=== PATIENT | female | born 1960 | race Caucasian/White ===

== ENCOUNTER → 2019-12-16 16:05 | Outpatient (BNVA) | payer MEDICARE, SELFPAY | PROVIDERS: Family Provider Family Medicine; PCP Family Medicine; Visit Provider Obstetrics & Gynecology | DX: R32 Unspecified urinary incontinence (principal); R33.9 Retention of urine, unspecified | CPT/HCPCS: 87086 ==

== ENCOUNTER 2020-06-18 09:39 | Outpatient (CLI) | payer MEDICARE, SELFPAY ==
--- NOTE | 2020-06-18 09:46 | MM_ITS ---
WS: [id number] BILATERAL SCREENING DIGITAL MAMMOGRAM WITH CAD HISTORY: SCREENING COMPARISON: 05/17/2019 and 08/11/2016 Bilateral CC and MLO views submitted. Computer aided detection analyzed. Breast composition: There are scattered areas of fibroglandular density. No suspicious masses, microc alcifications or architectural distortion. Benign calcifications LEFT breast. MM/[id number] IMPRESSION: BI-RADS: 2-Benign FOLLOW UP: 1 Year Follow-up
== END 2020-06-18 09:40 | disposition home or self-care (01) ==
LOC: RADSHAW 09:43
PROVIDERS: PCP Family Medicine; Visit Provider Family Medicine
DX: Z12.31 Encounter for screening mammogram for malignant neoplasm of breast (principal)
CPT/HCPCS: 77067

== ENCOUNTER → 2020-08-05 10:47 | Outpatient (BNVA) | payer MEDICARE, SELFPAY | PROVIDERS: PCP Family Medicine; Visit Provider Nurse Practitioner Family | DX: Z01.419 Encounter for gynecological examination (general) (routine) without abnormal findings (principal); L40.9 Psoriasis, unspecified | CPT/HCPCS: 88175 ==

== ENCOUNTER 2021-07-23 08:09 | Outpatient (CLI) | payer MEDICARE, SELFPAY ==
--- NOTE | 2021-07-23 08:22 | MM_ITS ---
WS: [id number] BILATERAL SCREENING DIGITAL MAMMOGRAM WITH CAD HISTORY: SCREENING COMPARISON: 06/18/2020 and 05/17/2019 Bilateral CC and MLO views submitted. Computer aided detection analyzed. Breast composition: There are scattered areas of fibroglandular density. No suspicious masses, microc alcifications or architectural distortion. Benign round calcifications LEFT breast. MM/[id number] IMPRESSION: BI-RADS: 2-Benign FOLLOW UP: 1 Year Follow-up
== END 2021-07-23 08:10 | disposition home or self-care (01) ==
LOC: RADSHAW 08:14
PROVIDERS: PCP Family Medicine; Visit Provider Family Medicine
DX: Z12.31 Encounter for screening mammogram for malignant neoplasm of breast (principal)
CPT/HCPCS: 77067

== ENCOUNTER → 2021-08-12 10:52 | Outpatient (BNVA) | payer MEDICARE, SELFPAY | PROVIDERS: PCP Family Medicine; Visit Provider Nurse Practitioner Family | DX: Z01.419 Encounter for gynecological examination (general) (routine) without abnormal findings (principal) | CPT/HCPCS: 87624 ==

== ENCOUNTER 2022-08-12 09:43 | Outpatient (CLI) | payer MEDICARE, SELFPAY ==
--- NOTE | 2022-08-12 10:03 | MM_ITS ---
WS: [id number] BILATERAL SCREENING DIGITAL TOMOSYNTHESIS MAMMOGRAM WITH CAD HISTORY: SCREEN COMPARISON: 07/23/2021 and 06/18/2020 Bilateral CC and MLO views with tomosynthesis and synthetic mammography submitted. Computer aided det ection analyzed. Breast composition: There are scattered areas of fibroglandular density. No suspicious masses, microc alcifications or architectural distortion. Benign coarse calcification upper-outer quadrant LEFT sofia st[address] MM/[id number] IMPRESSION: BI-RADS: 2-Benign FOLLOW UP: 1 Year Follow-up
== END 2022-08-12 09:44 | disposition home or self-care (01) ==
PROVIDERS: PCP Nurse Practitioner Family; Visit Provider Family Medicine
DX: Z12.31 Encounter for screening mammogram for malignant neoplasm of breast (principal)
CPT/HCPCS: 77063; 77067

== ENCOUNTER 2023-08-14 10:51 | Outpatient (CLI) | payer MEDICARE, SELFPAY ==
--- NOTE | 2023-08-14 11:00 | MM_ITS ---
WS: [id number] BILATERAL SCREENING DIGITAL TOMOSYNTHESIS MAMMOGRAM WITH CAD HISTORY: SCREENING COMPARISON: 08/12/2022 and 07/23/2021 Bilateral CC and MLO views with tomosynthesis and synthetic mammography submitted. Computer aided det ection analyzed. Breast composition: There are scattered areas of fibroglandular density. No suspicious masses, microc alcifications or architectural distortion. Benign calcifications in each breast. IMPRESSION: MM/[id number] BI-RADS: 2-Benign FOLLOW UP: 1 Year Follow-up
== END 2023-08-14 10:52 | disposition home or self-care (01) ==
PROVIDERS: PCP Family Medicine; Visit Provider Nurse Practitioner Family
DX: Z12.31 Encounter for screening mammogram for malignant neoplasm of breast (principal)
CPT/HCPCS: 77063; 77067

== ENCOUNTER → 2023-09-05 12:17 | Outpatient (BNVA) | payer MEDICARE, SELFPAY | PROVIDERS: PCP Nurse Practitioner Family; Visit Provider Nurse Practitioner Family | DX: Z01.419 Encounter for gynecological examination (general) (routine) without abnormal findings (principal) | CPT/HCPCS: 87624 ==

== ENCOUNTER 2024-08-16 09:00 | Outpatient (CLI) | payer MEDICARE, SELFPAY ==
--- NOTE | 2024-08-16 09:08 | MM_ITS ---
WS: [id number] BILATERAL SCREENING DIGITAL TOMOSYNTHESIS MAMMOGRAM WITH CAD HISTORY: SCREEN COMPARISON: 08/14/2023, 08/12/2022 Bilateral CC and MLO views with tomosynthesis and synthetic mammography submitted. Computer aided det ection analyzed. Breast composition: There are scattered areas of fibroglandular density. No suspicious masses, microc alcifications or architectural distortion. Scattered benign calcifications in each breast. MM/MM scr [place] tomosynthesis [id number] IMPRESSION: BI-RADS: 2 - Benign. FOLLOW UP: 1 Year Follow-up
== END 2024-08-16 09:05 | disposition home or self-care (01) ==
PROVIDERS: PCP Family Medicine; Visit Provider Nurse Practitioner Family
DX: Z12.31 Encounter for screening mammogram for malignant neoplasm of breast (principal); R92.323 Mammographic fibroglandular density, bilateral breasts; R92.1 Mammographic calcification found on diagnostic imaging of breast
CPT/HCPCS: 77063; 77067

== ENCOUNTER → 2024-09-19 10:28 | Outpatient (BNVA) | payer MEDICARE, SELFPAY | PROVIDERS: PCP Family Medicine; Visit Provider Family Medicine | DX: E11.319 Type 2 diabetes mellitus with unspecified diabetic retinopathy without macular edema (principal); I10 Essential (primary) hypertension; E78.2 Mixed hyperlipidemia; K21.9 Gastro-esophageal reflux disease without esophagitis | CPT/HCPCS: 80053; 80061; 82043; 83036; 84443; 85025 ==

== ENCOUNTER 2024-09-23 13:23 | Emergency (ER) | payer MEDICARE, SELFPAY ==
[2024-09-23 13:29] VITALS: BP 152/78; PULSE 85; RESP 20; TEMP 36.9; O2SAT 96
--- NOTE | 2024-09-23 13:42 | ED.C_ITS ---
HPI - Psych 2 General: Chief Complaint: Psychiatric Symptoms Stated Complaint: L knee pain and mhe Time Seen by Provider: 09/23/24 13:27 Source: patient Mode of arrival: ambulatory History of Present Illness: Patient was transported to the emergency department by buddhist friends. They are concerned because she is seemingly having some visual hallucinations over the past few days. Patient apparently lives with her adult son and his daughter. She has turns about her left knee states that needs to be taken care of today. She also states her blood pressure fluctuates. She currently denies any thoughts of harming herself. She also denies hallucinations at this time. She denies alcohol use. She denies any street drug use. She states she has been faithful to the prescribed medications. She states that Dr. Watson whom she saw her recently and to establish care has been prescribing her medications. Also recommended taking Benadryl for her pain. She states she has been taking Benadryl. Her past history is notable for a prior hysterectomy and cholecystectomy. She is also had a arthroplasty of her right knee several years ago. She did states that most of her care previously was obtained in [place] and doctors there but have moved on from those doctors to [facility] doctors at this time. She states she has a pending evaluation at [facility] but has not been seen at that facility at this time. She denies any prior history of suicidality. States that some nights she sleeps well other nights she does not sleep well. Patient is been eating and drinking normally. Associated symptoms: Reports visual hallucinations; Deny homicidal ideation or suicidal ideation Related Data Home Medications Medication Instructions Recorded Confirmed losartan 50 mg tablet 50 mg PO DAILY 12/16/19 09/23/24 atorvastatin 10 mg tablet (Lipitor) 10 mg PO DAILY 08/09/22 09/23/24 meloxicam 15 mg tablet 15 mg PO DAILY 08/09/22 09/23/24 famotidine 40 mg tablet (Pepcid) 40 mg PO DAILY 07/23/24 09/23/24 acetaminophen 325 mg tablet 325 mg PO QID PRN Pain 09/23/24 09/23/24 (Tylenol) Previous Rx's Medication Instructions Recorded ondansetron HCl 4 mg tablet 4 mg PO QID PRN nausea and 09/21/22 vomiting #30 tabs clonazepam 1 mg tablet (Klonopin) 1 mg PO BID PRN anxiety #60 tabs 07/23/24 estradiol 1 mg tablet 1 mg PO DAILY #90 tabs 07/23/24 metformin 500 mg tablet 500 mg PO DAILY #90 tabs 07/23/24 trazodone 100 mg tablet 200 mg (2 x 100 mg) PO .qhs #180 07/23/24 tabs trospium 20 mg tablet 20 mg PO BID #180 tabs 07/23/24 doxycycline hyclate 100 mg capsule 100 mg PO BID 10 days #20 caps 09/19/24 omeprazole 40 mg capsule,delayed 40 mg PO BID #180 caps 09/19/24 release risperidone 2 mg tablet 2 mg PO .qpm #90 tabs 09/19/24 Allergies Allergy/AdvReac Type Severity Reaction Status Date / Time ciprofloxacin [From Cipro] Allergy Severe ALGY-Anaphy Verified 09/19/24 09:34 laxis divalproex sodium Allergy Unknown Unknown Verified 09/19/24 09:34 [From Depakote] donepezil [From Aricept] Allergy ADR-Nausea Verified 09/19/24 09:34 fluoxetine [From Prozac] Allergy Unknown Verified 09/19/24 09:34 fluticasone Allergy ADR-Gastrointestinal Verified 09/19/24 09:34 [From Advair Diskus] Upset lamotrigine [From Lamictal] Allergy ADR-Nausea Verified 09/19/24 09:34 phentermine Allergy Unknown Verified 09/19/24 09:34 quetiapine [From Seroquel] Allergy ADR-Gastrointestinal Verified 09/19/24 09:34 Upset salmeterol Allergy ADR-Gastrointestinal Verified 09/19/24 09:34 [From Advair Diskus] Upset tamsulosin Allergy ALGY-Rash Verified 09/19/24 09:34 thiethylperazine Allergy ADR-Shakine Verified 09/19/24 09:34 [From Torecan] ss varenicline [From Chantix] Allergy ADR-Gastrointestinal Verified 09/19/24 09:34 Upset zonisamide [From Zonegran] Allergy ADV-Weaknes Verified 09/19/24 09:34 s Review of Systems 2 Const: Denies: fever(s) or chills ENMT: Denies: throat pain, odynophagia, nasal discharge or nasal congestion Card: Denies: chest pain, palpitations, syncope or pre-syncope Resp: Denies: productive cough or non-productive cough GI: Denies: abdominal pain, nausea, vomiting or diarrhea : Reports: urinary frequency; Denies: flank pain or urinary incontinence Skin/Breast: Denies: rash or pruritus Neuro: Denies: headache(s), numbness in extremities or weakness in extremities Psych: Reports: anxiety, difficulty concentrating and visual hallucinations; Denies: suicidal ideation or homicidal ideation Endo: Reports: polyuria; Denies: polydipsia, tired all the time or cold intolerance PFSH ED 2 PFSH: Medical History Hx of colonic polyps she says she is due for colonoscopy--last one [place] 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, due to meth Chronic back pain greater than 3 months duration Hormone replacement therapy (HRT) Nicotine dependence, cigarettes, in remission Hyperlipidemia GERD without esophagitis Anxiety Hx of hepatitis C cured; reports she has had hep a an b vax Overactive bladder Diabetic retinopathy associated with controlled type 2 diabetes mellitus Eczema Controlled type 2 diabetes mellitus, without long-term current use of insulin Glaucoma (~2017) History of CVA (cerebrovascular accident) in her 40s; no residual deficits Bipolar 1 disorder Hypertension Surgical History History of glaucoma tube shunt procedure Hx of cataract removal with insertion of prosthetic lens OU History of reconstructive repair of rectocele and pelvic floor reconstruction History of back surgery age 59; lumbar fusion History of foot surgery Removal of tumor from right foot. In her 30s. Hx of cholecystectomy Laparoscopic. In her 30s. Hx of appendectomy (~1987) Age 28. Hx of sinus surgery Sinus surgery with septoplasty. In her 30s Hx of tubal ligation (~1985) Age 26. History of tonsillectomy and adenoidectomy (~1978) Age 19 Hx of hysterectomy (~1990) ANABELLE/BSO due to endometriosis. Age 31. History of total right knee replacement (~2015) History of bladder repair surgery (~2014) Prolapse surgery by Dr. Melendez in [place]. Family History Father Diabetes Hypertension Mother Myocardial infarction Hypertension CAD (coronary artery disease) Renal cancer Grandmother Stroke maternal Social History Smoking and tobacco/nicotine status: former use of tobacco/nicotine Quit status (tobacco/nicotine): has quit using Year quit tobacco: 2021 Former quit date comment: 0.5 ppd from age 30 to 62 Second hand smoke exposure: No Alcohol intake: never Substance/Drug Use: former Date of last use: 1998 -marijuana and methamphetamine Former substance use details: did IV drugs--quit age 40; hx of hep c--cured Lives independently: Yes Household members: children Marital status: / Number of children: 3 Highest education level completed: Some College, No Degree Current occupational status: disabled Current occupation: RN; worked as labor and delivery nurse Current gender identity: Female Special irineo needs: No Agree to transfusion: Yes Physical Exam 2 Narrative: EXAM NARRATIVE: She is alert makes good eye contact. Speech is is fluent however her answers do display some evidence of light of idea with quickly changing subjects. She appears to be comfortable and cooperative. Const: COMMON NORMALS: no acute distress and patient oriented x3 GENERAL APPEARANCE: cooperative and comfortable NUTRITIONAL APPEARANCE: overweight ORIENTATION/CONSCIOUSNESS: Yes awake, Yes oriented to person and Yes oriented to place HENMT: COMMON NORMALS: Normal nasal mucous membranes and turbinates present, moist oral mucous membranes and oropharynx normal NOSE: Normal nasal mucous membranes and turbinates present Eye: COMMON NORMALS: Equal, round and reactive pupils present, EOMs intact bilaterally and conjunctivae normal CONJUNCTIVA: Yes conjunctivae normal P UPIL: Yes Equal, round and reactive pupils present Neck/C-Spine: COMMON NORMALS: full ROM, no lymphadenopathy, supple and Thyroid normal THYROID: Thyroid normal Resp: COMMON NORMALS: normal respiratory effort, No retractions, No use of accessory muscles and clear to auscultation bilaterally EFFORT & INSPECTION: Yes able to speak in complete sentences AUSCULTATION: clear to auscultation bilaterally Cardio: COMMON NORMALS: regular rate, regular rhythm, No murmurs present (Cardio) and Peripheral pulses 2+ throughout RATE: regular rate RHYTHM: r egular rhythm PERIPHERAL PULSES: Peripheral pulses 2+ throughout GI: COMMON NORMALS: Normal to inspection, nondistended, normoactive bowel sounds present, Soft to palpation and non-tender PALPATION: Yes Soft to palpation : COMMON NORMALS: Yes no CVA tenderness BLADDER/KIDNEY EXAM: Yes no CVA tenderness Back/Pelvis: COMMON NORMALS: no CVA tenderness, thoracic and lumbar spine normal to inspection, no thoracic nor lumbar tenderness, thoraco-lumbar ROM normal and straight leg raise negative bilaterally Extremity: COMMON NORMALS: normal to inspection, full ROM, capillary refill normal, no calf tenderness and no pedal edema NARRATIVE EXTREMITY EXAM: Examination of the tensional left knee reveals some generalized joint enlargement. No effusion noted. No laxity or varus or valgus stress. No erythema. Intact patellar tendon function. There is no joint line tenderness. There is negative Heidi and negative Mara's test. No other abnormalities noted of the joint above and below the knee with normal range of motion no deformity no tenderness. Neuro: COMMON NORMALS: patient oriented x3, moves all extremities, no focal motor deficits and no sensory deficits noted SENSORIUM/ORIENTATION: Yes oriented to person and Yes oriented to place CRANIAL NERVES: Yes CN normal except as noted Psych: COMMON NORMALS: mental status grossly normal and cooperative A CTIVITY/MOTOR BEHAVIOR: Yes appropriate eye contact and Yes disorganized behavior SPEECH: Yes rapid MOOD & AFFECT: Yes anxious THOUGHT PROCESS: Circumstantial thought process present and disorganized THOUGHT CONTENT: No Suicidality present and No Homicidality present INSIGHT: Limited insight present (Psych) JUDGEMENT: Fair judgement present (Psych) Skin: COMMON NORMALS: no rashes or lesions noted, no wounds and turgor normal GENERAL SKIN EXAM: no rashes or lesions noted and turgor normal Course 2 Reevaluation(s): Reevaluation #1: Discussed current status of laboratory workup with the patient as well as her accompanying friends. She told me that she does have a medical marijuana card and uses that for some of her arthritis pain there for the positive THC screen on her urine drug screen. She has thinks she has completed her steroid dosing and agrees to stop her diphenhydramine. Friends do relate that the family also has related to the last couple of weeks the patient has had some unusual change in behavior higher level executive functioning being impaired. While some of this certainly could be possible due to medication effects it is not clear therefore will discuss with consulting psychiatrist. Time: 15:57 Reevaluation #2: Patient remained stable interactive and appropriate to the situation at this time. Discussed current findings, recommendation for care and follow-up with both patient as well as her accompanying friends. She voiced understanding and acknowledged the plan of care and also return precautions. Her friends are also supportive of that decision. Time: 17:09 Consultations: Consultation #1: Reviewed her case with Dr. Lerma based on [facility] conversation he agreed that there was no strong indication for acute hospitalization at this time given her current domicile situation but he also agreed that she should be off her steroids and off for diphenhydramine and at that point determine if her symptoms persisted. He also did recommend that she probably needs to see a psychiatrist to help start tapering her off her clonazepam given her age. Time: 16:50 Vital Signs: Vital signs: Vital Signs Temperature 98.4 F 09/23/24 13:29 Pulse Rate 85 09/23/24 13:29 Respiratory Rate 20 H 09/23/24 13:29 Blood Pressure 152/78 09/23/24 13:29 Pulse Oximetry 96 09/23/24 13:29 MDM - Psych Medical Decision Making Patient presented as noted in the HPI. There was some concerns about behavioral changes over the past several days perhaps as long as 2 weeks. Patient has a longstanding history of bipolar disorder and has some recent medication changes made by her primary care doctor whom she is just initiated care with over the past several weeks. Also recently she is just initiated Benadryl as well as steroids for treatment of a sinus infection. At no time did she endorse any thoughts of harming herself or others. According to the buddhist friends who are with her there she has been a little bit confused about doing some simple function such as using her phone etc. The patient's clinical exam revealed her to be somewhat disorganized and but once she was directed she was able to engage in propria conversation. Her clinical examination was notable for no obvious stigmata of clinical disease although she does have some left knee pain which has been chronic in nature and likely due to osteoarthritis. Laboratories and radiographs were obtained to ensure that there is no obvious biochemical abnormalities and also to evaluate her left knee. Left knee images are consistent with osteoarthritis and no other evidence of bony disruption her clinical exam did not reveal any obvious internal derangement today. She was noted to have normal TSH as well as other biochemistries did note that she had a THC on board but she admits to using medical marijuana. A consultation was obtained from psychiatry regarding review of her case. We agreed that likely possible contributing factor to some of her recent change may be her medications to include her diphenhydramine and steroids and we recommend those to be discontinued and she will be observed for improvement. Additional evaluation by mental health was discussed regarding presenting at [facility] or returning to the emergency department should she have no improvement in her condition or worsening symptoms or thoughts of harm. She is stable at this time to be discharged to home and she is currently lives with her son who is an adult as well as his child. Medical Records I reviewed the patient's medical records. Family practice visit evaluations reviewed. Patient's been recently treated for sinus infection. Lab Data I reviewed the patient's lab results. 09/23/24 14:27 09/23/24 14:27 Radiology Impressions Knee X-Ray 09/23/24 13:45 Impression: Minimal medial joint compartment narrowing with knee. Small spurs of the posterior left patella. Kellgren-Ezio Classification: grade 1 (doubtful): doubtful joint space narrowing and possible osteophytic lipping Laboratory Results WBC 8.96 10^3/uL (3.29-11.43) 09/23/24 14: RBC 4.74 10^6/uL (3.85-5.65) 09/23/24 14:27 Hgb 14.00 g/dL (11.27-16.99) 09/23/24 14: Hct 42.5 % (36-47) 09/23/24 14: MCV 89.7 fl (85-98) 09/23/24 14:27 MCH 29.5 pg (27-33) 09/23/24 14: MCHC 32.9 g/dL (30-55) 09/23/24 14:27 RDW 13.1 % (12.1-15.1) 09/23/24 14:27 Plt Count 225 10^3/cmm (157-399) 09/23/24 14: MPV 11.1 fL (7.4-10.4) H 09/23/24 14: Neut % (Auto) 72.6 % 09/23/24 14: Lymph % (Auto) 23.0 % 09/23/24 14: Kaufman % (Auto) 3.5 % 09/23/24 14: Eos % (Auto) 0.4 % 09/23/24 14:27 Baso % (Auto) 0.2 % 09/23/24 14:27 Neut # (Auto) 6.50 10^3/uL (1.8-7.7) 09/23/24 14: Lymph # (Auto) 2.1 10^3/uL (0.8-4.8) 09/23/24 14:27 Kaufman # (Auto) 0.3 10^3/uL (0.2-0.9) 09/23/24 14: Eos # (Auto) 0.0 10^3/uL (0.0-0.8) 09/23/24 14: Baso # (Auto) 0.0 10^3/uL (0.0-0.1) 09/23/24 14: Nucleated RBC % (auto) 0.4 % 09/23/24 14: Nucleated RBCs # 0.0 /100WBC 09/23/24 14:27 Sodium 134 mmol/L (136-145) L 09/23/24 14:27 Potassium 4.3 mmol/L (3.5-5.1) 09/23/24 14: Chloride 97 mmol/L (98-107) L 09/23/24 14: Carbon Dioxide 23 mmol/L (22-29) 09/23/24 14:27 Anion Gap 18.3 (5-19) 09/23/24 14:27 BUN 8 mg/dL (8-23) 09/23/24 14:27 Creatinine 0.6 mg/dL (0.5-0.9) 09/23/24 14:27 GFR Calculation 100.6 mL/min (90-130) 09/23/24 14:27 Glucose 108 mg/dL (65-115) 09/23/24 14:27 Calculated Osmolality 277 mOsm/kg (285-295) L 09/23/24 14: Calcium 10.0 mg/dL (8.5-10.5) 09/23/24 14:27 Total Bilirubin 0.5 mg/dL (0.15-1.2) 09/23/24 14:27 AST 25 U/L (0-32) 09/23/24 14:27 ALT 25 U/L (0-33) 09/23/24 14: Alkaline Phosphatase 28 U/L (35-105) L 09/23/24 14:27 Total Protein 7.0 g/dL (6.6-8.7) 09/23/24 14: Albumin 4.5 g/dL (3.5-5.2) 09/23/24 14: Globulin 2.5 g/dL (1.3-4.6) 09/23/24 14: TSH 0.38 uIU/mL (0.27-4.20) 09/23/24 14:27 Urine Color Yellow (Yellow) 09/23/24 13:45 Urine Appearance Clear (CLEAR) 09/23/24 13:45 Urine pH 6.5 (5-7) 09/23/24 13:45 Ur Specific [place] 1.009 (1.005-1.030) 09/23/24 13:45 Urine Protein Negative (Negative) 09/23/24 13:45 Urine Glucose (UA) Negative (Normal) 09/23/24 13:45 Urine Ketones Negative (Negative) 09/23/24 13:45 Urine Blood Negative (Negative) 09/23/24 13:45 Urine Nitrate Negative (Negative) 09/23/24 13:45 Urine Bilirubin Negative (Negative) 09/23/24 13:45 Urine Urobilinogen 1.0 mg/dL (Negative) 09/23/24 13:45 Ur Leukocyte Esterase Negative (Negative) 09/23/24 13:45 Urine RBC 0-2 /hpf (0-2) 09/23/24 13:45 Urine WBC 0-5 /hpf (0-5) 09/23/24 13:45 Ur Squamous Epith Cells 0-5 /hpf (0-5) 09/23/24 13:45 Amorphous Sediment Not Reportable 09/23/24 13:45 Urine Bacteria None seen /hpf (NONE) 09/23/24 13:45 Hyaline Casts 0-4 /lpf H 09/23/24 13:45 Salicylates < 0.3 mg/dL (3-10) L 09/23/24 14:27 Urine Opiates Screen Negative ng/mL (Negative) 09/23/24 13:45 Acetaminophen < 5.0 ug/mL (10-30) L 09/23/24 14:27 Ur Barbiturates Screen Negative ng/mL (Negative) 09/23/24 13:45 Ur Phencyclidine Scrn Negative ng/mL (Negative) 09/23/24 13:45 Ur Amphetamines Screen Negative ng/mL (Negative) 09/23/24 13:45 U Benzodiazepines Scrn Negative ng/mL (Negative) 09/23/24 13:45 Urine Cocaine Screen Negative ng/mL (Negative) 09/23/24 13:45 U Marijuana (THC) Screen Positive ng/mL (Negative) H 09/23/24 13:45 Ethyl Alcohol < 10 mg/dL (0-10) 09/23/24 14:27 All radiology interpretation(s) finalized by discharge Discharge Plan Discharge Patient Disposition: Home Clinical Impression: Arthralgia of left knee, Bipolar disorder Condition: Stable Prescriptions: Discontinued prednisone 20 mg tablet 20 mg PO .COMPLEX Qty: 18 0RF Rx Instructions: 3 tabs daily X 3 days, then 2 tabs daily X 3days, then 1 po daily X 3 days #18 diphenhydramine HCl [Benadryl] 25 mg Capsule 25 mg PO TID PRN (Reason: Sleep) No Action losartan 50 mg tablet 50 mg PO DAILY famotidine [Pepcid] 40 mg tablet 40 mg PO DAILY clonazepam [Klonopin] 1 mg tablet 1 mg PO BID PRN (Reason: anxiety) Qty: 60 3RF estradiol 1 mg tablet 1 mg PO DAILY Qty: 90 1RF metformin 500 mg tablet 500 mg PO DAILY Qty: 90 1RF trazodone 100 mg tablet 200 mg PO .qhs Qty: 180 1RF trospium 20 mg tablet 20 mg PO BID Qty: 180 1RF Rx Instructions: administer on an empty stomach omeprazole 40 mg capsule,delayed release(DR/EC) 40 mg PO BID Qty: 180 1RF risperidone 2 mg tablet 2 mg PO .qpm Qty: 90 1RF doxycycline hyclate 100 mg capsule 100 mg PO BID 10 Days Qty: 20 0RF meloxicam 15 mg tablet 15 mg PO DAILY atorvastatin [Lipitor] 10 mg tablet 10 mg PO DAILY ondansetron HCl 4 mg tablet 4 mg PO QID PRN (Reason: nausea and vomiting) Qty: 30 0RF acetaminophen [Tylenol] 325 mg Tablet 325 mg PO QID PRN (Reason: Pain) Discharge Orders: Discharge ED (Routine); Ordered 09/23/24 Ordered By: Chriss Jones Referrals: Ellie Maya MD [Primary Care Provider] - 1-3 days Discharge Diet: Usual diet Discharge Activity: Increase activity as tolerated Patient Instructions: Opioid Safety, Pain Management Activity Restrictions/Additional Instructions: As we discussed there is a possibility that some of the medications you have recently been taking may be affecting you in a negative way and we recommend stopping the Benadryl as well as the prednisone. You should continue all your other medications as prescribed. We have also made a consultation request for orthopedic surgery to see you regarding your knee. We recommend you use your arthritis cream on your knee to help with your pain. If it anytime you feel like you are not thinking clearly having thoughts of harming yourself or harming others or any other concerns return to the emergency department immediately otherwise call your physician tomorrow to discuss your follow-up and possible psychiatric referral. Coding Level of Care Code ED Power System Operator for Margret Breaux
--- NOTE | 2024-09-23 13:45 | XR_ITS ---
WS: [id number] Left knee, 3 views, 09/23/2024 Clinical Data: pain Comparison: None. Findings: No fractures or dislocations are seen. There is medial joint compartment narrowing with a small spur of the medial femoral condyle. There are minimal spurs of the posterior left patella. The patella is intact. The soft tissues are unremarkable. XR/XR knee LT 3V* [id number] Impression: Minimal medial joint compartment narrowing with knee. Small spurs of the medical genetics director ior left patella. Kellgren-Ezio Classification: grade 1 (doubtful): doubtful joint space narr owing and possible osteophytic lipping
[2024-09-23 14:09] LABS: Bilirubin Urine Negative (Negative); Blood Urine Negative (Negative); Glucose Urine UA Negative (Normal); Ketones Urine Negative (Negative); Leukocyte Esterase Urine Negative (Negative); Nitrate Urine Negative (Negative); Protein Urine Negative (Negative); Specific Gravity, Urine 1.009 (1.005-1.030); Urine Appearance Clear (CLEAR); Urine Color Yellow (Yellow); pH Urine 6.5 (5-7)
[2024-09-23 14:12] LABS: Add Urine Microscopic? YES; Bacteria Urine None Seen /hpf; Hyaline Casts Urine 0-4 /lpf; RBC Urine 0-2 /hpf (0-2); Squamous Epithelial Cell Urine 0-5 /hpf (0-5); WBC Urine 0-5 /hpf (0-5)
[2024-09-23 14:15] LABS: Amphetamines Screen Urine Negative (Negative); Barbiturates Screen Urine Negative (Negative); Benzodiazepines Screen Urine Negative (Negative); Cocaine Screen Urine Negative (Negative); Opiate Screen Urine Negative (Negative); PCP Screen Urine Negative (Negative); THC Screen Urine Positive (Negative)
[2024-09-23 14:36] LABS: Basophils % 0.2 %; Eosinophils % 0.4 %; Hematocrit 42.5 % (36-47); Lymphocytes # 2.1 10^3/uL (0.8-4.8); Mean Corpuscular HGB Conc 32.9 g/dL (30-55); Mean Corpuscular Hemoglobin 29.5 pg (27-33); Mean Corpuscular Volume 89.7 fl (85-98); Mean Platelet Volume 11.1 fL (7.4-10.4); Monocytes # 0.3 10^3/uL (0.2-0.9); Monocytes % 3.5 %; Neutrophils % 72.6 %; Nucleated Red Blood Cells % 0.4 %; Platelet Count 225 10^3/cmm (157-399); Red Blood Count 4.74 10^6/uL (3.85-5.65); Red Cell Distribution Width 13.1 % (12.1-15.1); White Blood Count 8.96 10^3/uL (3.29-11.43)
[2024-09-23 15:12] LABS: Acetaminophen < 5.0 ug/mL (10-30); Alanine Aminotransferase 25 U/L (0-33); Albumin Level 4.5 g/dL (3.5-5.2); Alcohol Level < 10 mg/dL (0-10); Alkaline Phosphatase 28 U/L (35-105); Anion Gap 18.3 (5-19); Aspartate Amino Transferase 25 U/L (0-32); Blood Urea Nitrogen 8 mg/dL (8-23); Carbon Dioxide 23 mmol/L (22-29); Chloride 97 mmol/L (98-107); Creatinine Clr Calc Pharmacy 95.3083; Globulin 2.5 g/dL (1.3-4.6); Glomerular Filtration Rate 100.6 mL/min (90-130); Glucose 108 mg/dL (65-115); Osmolality Calculated 277 mOsm/kg (285-295); Potassium 4.3 mmol/L (3.5-5.1); Salicylate < 0.3 mg/dL (3-10); Sodium 134 mmol/L (136-145); Thyroid Stimulating Hormone 0.38 uIU/mL (0.27-4.20); Total Bilirubin 0.5 mg/dL (0.15-1.2)
[2024-09-23 17:22] VITALS: BP 143/93; PULSE 85; O2SAT 97
--- NOTE | 2024-09-24 08:10 | DCPLANNER ---
Message sent to Ortho for follow up-
== END 2024-09-23 17:23 | disposition home or self-care (01) ==
PROVIDERS: Emergency Provider Emergency Medicine; PCP Family Medicine
DX: M25.562 Pain in left knee (principal); F31.9 Bipolar disorder, unspecified; Z79.84 Long term (current) use of oral hypoglycemic drugs; Z87.891 Personal history of nicotine dependence; E78.5 Hyperlipidemia, unspecified; E11.319 Type 2 diabetes mellitus with unspecified diabetic retinopathy without macular edema; I10 Essential (primary) hypertension; Z86.73 Personal history of transient ischemic attack (TIA), and cerebral infarction without residual deficits
CPT/HCPCS: 36415; 73562; 80053; 80306; 80307; 81001; 84443; 85025; 99284

== ENCOUNTER 2024-09-30 08:55 | Inpatient (IN) | payer MEDICARE, SELFPAY ==
[2024-09-30] VITALS (7 sets, daily range): BP systolic 116–164; BP diastolic 61–98; PULSE 91–106; RESP 12–18; TEMP 36.4–36.7; O2SAT 95–98; BMI 31.5
--- NOTE | 2024-09-30 09:16 | ED.C_ITS ---
Documented by User: LISA Wade 09/30/24 09:47 HPI - Psych 2 General: Chief Complaint: Psychiatric Symptoms Stated Complaint: MHE Time Seen by Provider: 09/30/24 08:59 Source: patient and family (son) Limitations: no limitations History of Present Illness: Patient is a 64-year-old female presents to ED today along with her son for mental health evaluation. She comes with 2 signed affidavits. According to these affidavits, patient has been acting very differently over the past few weeks. She has been emotionally labile, paranoid, and delusional. Affidavit states that she had problems differentiating between common items like a notepad, phone, her purse. She feels like everybody is mad at her. She was seen at the crisis center and sent to the emergency department due to disorganized behavior and thoughts. She endorses loss of reality and time. She reported hallucinations. MD complaint: altered mental status Onset (ago): week(s) Duration: constant History of same: Yes Relieving factors: none Exacerbating factors: none Associated psychiatric symptoms: visual hallucinations and delusions Associated symptoms: Reports auditory hallucinations, delusions and depression; Deny visual hallucinations, homicidal ideation or suicidal ideation Treatments prior to arrival: other (crisis intervention; affidavits) Related Data Home Medications Medication Instructions Recorded Confirmed losartan 50 mg tablet 50 mg PO DAILY 12/16/19 09/30/24 atorvastatin 10 mg tablet (Lipitor) 10 mg PO QPM 08/09/22 09/30/24 meloxicam 15 mg tablet 15 mg PO DAILY 08/09/22 09/30/24 famotidine 40 mg tablet (Pepcid) 40 mg PO DAILY 07/23/24 09/30/24 acetaminophen 325 mg tablet 325 mg PO QID PRN Pain 09/23/24 09/30/24 (Tylenol) Metamucil Fiber Gummies 2 gummy PO BID 09/30/24 09/30/24 acetaminophen 500 mg tablet 1,000 mg PO Q6H PRN Pain 09/30/24 09/30/24 (Tylenol Extra Strength) albuterol sulfate 90 mcg/actuation 2 puff inhalation Q6H PRN 09/30/24 09/30/24 aerosol inhaler Shortness Of Breath biotin 5 mg tablet 5 mg PO DAILY 09/30/24 09/30/24 fexofenadine 180 mg tablet 180 mg PO DAILY 09/30/24 09/30/24 guaifenesin 600 mg tablet, 600 mg PO QAM 09/30/24 09/30/24 extended release 12 hr (Mucinex) latanoprost 0.005 % eye drops 1 drp ophthalmic (eye) DAILY 09/30/24 09/30/24 multivitamin 1 tab PO DAILY 09/30/24 09/30/24 omega 2-lyu-lgi-fish oil 1,000 mg 1 cap PO BID 09/30/24 09/30/24 (120 mg-180 mg) capsule (Fish Oil) risperidone 2 mg tablet 2 mg PO QPM 09/30/24 09/30/24 timolol maleate 0.5 % eye drops 1 drp ophthalmic (eye) BID 09/30/24 09/30/24 trazodone 100 mg tablet 100 mg PO BID 09/30/24 09/30/24 Previous Rx's Medication Instructions Recorded clonazepam 1 mg tablet (Klonopin) 1 mg PO BID PRN anxiety #60 tabs 07/23/24 estradiol 1 mg tablet 1 mg PO DAILY #90 tabs 07/23/24 metformin 500 mg tablet 500 mg PO DAILY #90 tabs 07/23/24 trospium 20 mg tablet 20 mg PO BID #180 tabs 07/23/24 omeprazole 40 mg capsule,delayed 40 mg PO BID #180 caps 09/19/24 release Allergies Allergy/AdvReac Type Severity Reaction Status Date / Time ciprofloxacin [From Cipro] Allergy Severe ALGY-Anaphy Verified 09/19/24 09:34 laxis divalproex sodium Allergy Unknown Unknown Verified 09/19/24 09:34 [From Depakote] donepezil [From Aricept] Allergy ADR-Nausea Verified 09/19/24 09:34 fluoxetine [From Prozac] Allergy Unknown Verified 09/19/24 09:34 fluticasone Allergy ADR-Gastrointestinal Verified 09/19/24 09:34 [From Advair Diskus] Upset lamotrigine [From Lamictal] Allergy ADR-Nausea Verified 09/19/24 09:34 phentermine Allergy Unknown Verified 09/19/24 09:34 quetiapine [From Seroquel] Allergy ADR-Gastrointestinal Verified 09/19/24 09:34 Upset salmeterol Allergy ADR-Gastrointestinal Verified 09/19/24 09:34 [From Advair Diskus] Upset tamsulosin Allergy ALGY-Rash Verified 09/19/24 09:34 thiethylperazine Allergy ADR-Shakine Verified 09/19/24 09:34 [From Torecan] ss varenicline [From Chantix] Allergy ADR-Gastrointestinal Verified 09/19/24 09:34 Upset zonisamide [From Zonegran] Allergy ADV-Weaknes Verified 09/19/24 09:34 s Review of Systems 2 Const: Denies: fever(s) or chills Card: Denies: chest pain, palpitations, lightheadedness or syncope Resp: Denies: dyspnea GI: Denies: abdominal pain, nausea, vomiting or diarrhea Musc: Reports: other (chronic pain) Skin/Breast: Denies: rash Neuro: Denies: headache(s) Psych: Reports: anxiety, depression, paranoia and auditory hallucinations; Denies: visual hallucinations, suicidal ideation or homicidal ideation PFS ED 2 PFSH: Medical History Hx of colonic polyps she says she is due for colonoscopy--last one [place] 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, due to meth Chronic back pain greater than 3 months duration Hormone replacement therapy (HRT) Nicotine dependence, cigarettes, in remission Hyperlipidemia GERD without esophagitis Anxiety Hx of hepatitis C cured; reports she has had hep a an b vax Overactive bladder Diabetic retinopathy associated with controlled type 2 diabetes mellitus Eczema Controlled type 2 diabetes mellitus, without long-term current use of insulin Glaucoma (~2017) History of CVA (cerebrovascular accident) in her 40s; no residual deficits Bipolar 1 disorder Hypertension Surgical History History of glaucoma tube shunt procedure Hx of cataract removal with insertion of prosthetic lens OU History of reconstructive repair of rectocele and pelvic floor reconstruction History of back surgery age 59; lumbar fusion History of foot surgery Removal of tumor from right foot. In her 30s. Hx of cholecystectomy Laparoscopic. In her 30s. Hx of appendectomy (~1987) Age 28. Hx of sinus surgery Sinus surgery with septoplasty. In her 30s Hx of tubal ligation (~1985) Age 26. History of tonsillectomy and adenoidectomy (~1978) Age 19 Hx of hysterectomy (~1990) ANABELLE/BSO due to endometriosis. Age 31. History of total right knee replacement (~2015) History of bladder repair surgery (~2014) Prolapse surgery by Dr. Melendez in [place]. Family History Father Diabetes Hypertension Mother Myocardial infarction Hypertension CAD (coronary artery disease) Renal cancer Grandmother Stroke maternal Social History Smoking and tobacco/nicotine status: former use of tobacco/nicotine Quit status (tobacco/nicotine): has quit using Year quit tobacco: 2021 Former quit date comment: 0.5 ppd from age 30 to 62 Second hand smoke exposure: No Alcohol intake: never Substance/Drug Use: former Date of last use: 1998 -marijuana and methamphetamine Former substance use details: did IV drugs--quit age 40; hx of hep c--cured Lives independently: Yes Household members: children Marital status: / Number of children: 3 Highest education level completed: Some College, No Degree Current occupational status: disabled Current occupation: RN; worked as labor and delivery nurse Current gender identity: Female Special irineo needs: No Agree to transfusion: Yes Physical Exam 2 Const: COMMON NORMALS: no acute distress, patient oriented x3, no limitations, alert and well nourished GENERAL APPEARANCE: cooperative O RIENTATION/CONSCIOUSNESS: Yes awake, Yes oriented to person and Yes oriented to place Resp: COMMON NORMALS: normal respiratory effort and clear to auscultation bilaterally AUSCULTATION: clear to auscultation bilaterally Cardio: COMMON NORMALS: regular rate and regular rhythm RATE: regular rate RHYTHM: regular rhythm Neuro: COMMON NORMALS: patient oriented x3 SENSORIUM/ORIENTATION: Yes alert, Yes oriented to person and Yes oriented to place Psych: COMMON NORMALS: mental status grossly normal, cooperative, normal affect, speech normal, activity/motor behavior normal, denies homicidal ideation and denies suicidal ideation APPEARANCE: Yes grossly normal ATTITUDE: Yes calm ACTIVITY/MOTOR BEHAVIOR: Yes appropriate eye contact and No psychomotor agitation SPEECH: Yes normal speech MOOD & AFFECT: Yes euthymic mood T HOUGHT CONTENT: Yes delusions ATTENTION/CONCENTRATION: Yes attention grossly intact and Yes concentration grossly intact MEMORY/COGNITION: Yes memory grossly intact and Yes cognition grossly intact INSIGHT: Fair insight present (Psych) JUDGEMENT: Fair judgement present (Psych) Course 2 Consultations: Consultation #1: Dr. Larson-accepts hospitalization to NPU Vital Signs: Vital signs: Vital Signs Temperature 98.0 F 09/30/24 10:20 Pulse Rate 106 H 09/30/24 10:20 Respiratory Rate 17 09/30/24 10:20 Blood Pressure 164/81 09/30/24 13:43 Pulse Oximetry 95 09/30/24 10:20 Oxygen Delivery Me thod Room Air 09/30/24 10:22 MDM - Psych Medical Decision Making Patient was placed on 96 hr hold with the two affidavits provided. She will be admitted to NPU to Dr. Larson.. Medical Records I reviewed the patient's medical records. Lab Data I reviewed the patient's lab results. 09/30/24 09:16 09/30/24 09:16 Laboratory Results WBC 8.18 10^3/uL (3.29-11.43) 09/30/24 09:16 RBC 4.71 10^6/uL (3.85-5.65) 09/30/24 09:16 Hgb 14.00 g/dL (11.27-16.99) 09/30/24 09:16 Hct 43.1 % (36-47) 09/30/24 09:16 MCV 91.5 fl (85-98) 09/30/24 09:16 MCH 29.7 pg (27-33) 09/30/24 09:16 MCHC 32.5 g/dL (30-55) 09/30/24 09:16 RDW 13.1 % (12.1-15.1) 09/30/24 09:16 Plt Count 201 10^3/cmm (157-399) 09/30/24 09:16 MPV 10.6 fL (7.4-10.4) H 09/30/24 09:16 Neut % (Auto) 65.1 % 09/30/24 09:16 Lymph % (Auto) 24.3 % 09/30/24 09:16 Brewster % (Auto) 7.0 % 09/30/24 09:16 Eos % (Auto) 3.3 % 09/30/24 09:16 Baso % (Auto) 0.2 % 09/30/24 09:16 Neut # (Auto) 5.32 10^3/uL (1.8-7.7) 09/30/24 09:16 Lymph # (Auto) 2.0 10^3/uL (0.8-4.8) 09/30/24 09:16 Brewster # (Auto) 0.6 10^3/uL (0.2-0.9) 09/30/24 09:16 Eos # (Auto) 0.3 10^3/uL (0.0-0.8) 09/30/24 09:16 Baso # (Auto) 0.0 10^3/uL (0.0-0.1) 09/30/24 09:16 Nucleated RBC % (auto) 0 % 09/30/24 09:16 Nucleated RBCs # 0.0 /100WBC 09/30/24 09:16 Sodium 136 mmol/L (136-145) 09/30/24 09:16 Potassium 4.4 mmol/L (3.5-5.1) 09/30/24 09:16 Chloride 99 mmol/L (98-107) 09/30/24 09:16 Carbon Dioxide 25 mmol/L (22-29) 09/30/24 09:16 Anion Gap 16.4 (5-19) 09/30/24 09:16 BUN 16 mg/dL (8-23) 09/30/24 09:16 Creatinine 0.6 mg/dL (0.5-0.9) 09/30/24 09:16 GFR Calculation 100.6 mL/min (90-130) 09/30/24 09:16 Glucose 209 mg/dL (65-115) H 09/30/24 09:16 Calculated Osmolality 289 mOsm/kg (285-295) 09/30/24 09:16 Calcium 9.7 mg/dL (8.5-10.5) 09/30/24 09:16 Total Bilirubin 0.3 mg/dL (0.15-1.2) 09/30/24 09:16 AST 22 U/L (0-32) 09/30/24 09:16 ALT 25 U/L (0-33) 09/30/24 09:16 Alkaline Phosphatase 25 U/L (35-105) L 09/30/24 09:16 Total Protein 7.1 g/dL (6.6-8.7) 09/30/24 09:16 Albumin 4.5 g/dL (3.5-5.2) 09/30/24 09:16 Globulin 2.6 g/dL (1.3-4.6) 09/30/24 09:16 Salicylates 1.0 mg/dL (3-10) L 09/30/24 09:16 Urine Opiates Screen Negative ng/mL (Negative) 09/30/24 09:32 Acetaminophen < 5.0 ug/mL (10-30) L 09/30/24 09:16 Ur Barbiturates Screen Negative ng/mL (Negative) 09/30/24 09:32 Ur Phencyclidine Scrn Negative ng/mL (Negative) 09/30/24 09:32 Ur Amphetamines Screen Negative ng/mL (Negative) 09/30/24 09:32 U Benzodiazepines Scrn Negative ng/mL (Negative) 09/30/24 09:32 Urine Cocaine Screen Negative ng/mL (Negative) 09/30/24 09:32 U Marijuana (THC) Screen Positive ng/mL (Negative) H 09/30/24 09:32 Ethyl Alcohol < 10 mg/dL (0-10) 09/30/24 09:16 No radiology studies performed this visit Discharge Plan Discharge Patient Disposition: Admitted As Inpatient Admit Provider: Felix Larson Clinical Impression: Acute psychosis Condition: Stable Coding Level of Care Code ED Commercial Pest Control Technician for Chg Fwd Documented by User: Zachery Mckeon DO 09/30/24 14:13 HPI - Psych 2 General: Chief Complaint: Psychiatric Symptoms Stated Complaint: MHE Time Seen by Provider: 09/30/24 08:59 Related Data Home Medications Medication Instructions Recorded Confirmed losartan 50 mg tablet 50 mg PO DAILY 12/16/19 09/30/24 atorvastatin 10 mg tablet (Lipitor) 10 mg PO QPM 08/09/22 09/30/24 meloxicam 15 mg tablet 15 mg PO DAILY 08/09/22 09/30/24 famotidine 40 mg tablet (Pepcid) 40 mg PO DAILY 07/23/24 09/30/24 acetaminophen 325 mg tablet 325 mg PO QID PRN Pain 09/23/24 09/30/24 (Tylenol) Metamucil Fiber Gummies 2 gummy PO BID 09/30/24 09/30/24 acetaminophen 500 mg tablet 1,000 mg PO Q6H PRN Pain 09/30/24 09/30/24 (Tylenol Extra Strength) albuterol sulfate 90 mcg/actuation 2 puff inhalation Q6H PRN 09/30/24 09/30/24 aerosol inhaler Shortness Of Breath biotin 5 mg tablet 5 mg PO DAILY 09/30/24 09/30/24 fexofenadine 180 mg tablet 180 mg PO DAILY 09/30/24 09/30/24 guaifenesin 600 mg tablet, 600 mg PO QAM 09/30/24 09/30/24 extended release 12 hr (Mucinex) latanoprost 0.005 % eye drops 1 drp ophthalmic (eye) DAILY 09/30/24 09/30/24 multivitamin 1 tab PO DAILY 09/30/24 09/30/24 omega 5-ywi-dbi-fish oil 1,000 mg 1 cap PO BID 09/30/24 09/30/24 (120 mg-180 mg) capsule (Fish Oil) risperidone 2 mg tablet 2 mg PO QPM 09/30/24 09/30/24 timolol maleate 0.5 % eye drops 1 drp ophthalmic (eye) BID 09/30/24 09/30/24 trazodone 100 mg tablet 100 mg PO BID 09/30/24 09/30/24 Previous Rx's Medication Instructions Recorded clonazepam 1 mg tablet (Klonopin) 1 mg PO BID PRN anxiety #60 tabs 07/23/24 estradiol 1 mg tablet 1 mg PO DAILY #90 tabs 07/23/24 metformin 500 mg tablet 500 mg PO DAILY #90 tabs 07/23/24 trospium 20 mg tablet 20 mg PO BID #180 tabs 07/23/24 omeprazole 40 mg capsule,delayed 40 mg PO BID #180 caps 09/19/24 release Allergies Allergy/AdvReac Type Severity Reaction Status Date / Time ciprofloxacin [From Cipro] Allergy Severe ALGY-Anaphy Verified 09/19/24 09:34 laxis divalproex sodium Allergy Unknown Unknown Verified 09/19/24 09:34 [From Depakote] donepezil [From Aricept] Allergy ADR-Nausea Verified 09/19/24 09:34 fluoxetine [From Prozac] Allergy Unknown Verified 09/19/24 09:34 fluticasone Allergy ADR-Gastrointestinal Verified 09/19/24 09:34 [From Advair Diskus] Upset lamotrigine [From Lamictal] Allergy ADR-Nausea Verified 09/19/24 09:34 phentermine Allergy Unknown Verified 09/19/24 09:34 quetiapine [From Seroquel] Allergy ADR-Gastrointestinal Verified 09/19/24 09:34 Upset salmeterol Allergy ADR-Gastrointestinal Verified 09/19/24 09:34 [From Advair Diskus] Upset tamsulosin Allergy ALGY-Rash Verified 09/19/24 09:34 thiethylperazine Allergy ADR-Shakine Verified 09/19/24 09:34 [From Torecan] ss varenicline [From Chantix] Allergy ADR-Gastrointestinal Verified 09/19/24 09:34 Upset zonisamide [From Zonegran] Allergy ADV-Weaknes Verified 09/19/24 09:34 s PFSH ED 2 PFSH: Medical History Hx of colonic polyps she says she is due for colonoscopy--last one [place] 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, due to meth Chronic back pain greater than 3 months duration Hormone replacement therapy (HRT) Nicotine dependence, cigarettes, in remission Hyperlipidemia GERD without esophagitis Anxiety Hx of hepatitis C cured; reports she has had hep a an b vax Overactive bladder Diabetic retinopathy associated with controlled type 2 diabetes mellitus Eczema Controlled type 2 diabetes mellitus, without long-term current use of insulin Glaucoma (~2017) History of CVA (cerebrovascular accident) in her 40s; no residual deficits Bipolar 1 disorder Hypertension Surgical History History of glaucoma tube shunt procedure Hx of cataract removal with insertion of prosthetic lens OU History of reconstructive repair of rectocele and pelvic floor reconstruction History of back surgery age 59; lumbar fusion History of foot surgery Removal of tumor from right foot. In her 30s. Hx of cholecystectomy Laparoscopic. In her 30s. Hx of appendectomy (~1987) Age 28. Hx of sinus surgery Sinus surgery with septoplasty. In her 30s Hx of tubal ligation (~1985) Age 26. History of tonsillectomy and adenoidectomy (~1978) Age 19 Hx of hysterectomy (~1990) ANABELLE/BSO due to endometriosis. Age 31. History of total right knee replacement (~2015) History of bladder repair surgery (~2014) Prolapse surgery by Dr. Melendez in [place]. Family History Father Diabetes Hypertension Mother Myocardial infarction Hypertension CAD (coronary artery disease) Renal cancer Grandmother Stroke maternal Social History Smoking and tobacco/nicotine status: former use of tobacco/nicotine Quit status (tobacco/nicotine): has quit using Year quit tobacco: 2021 Former quit date comment: 0.5 ppd from age 30 to 62 Second hand smoke exposure: No Alcohol intake: never Substance/Drug Use: former Date of last use: 1998 -marijuana and methamphetamine Former substance use details: did IV drugs--quit age 40; hx of hep c--cured Lives independently: Yes Household members: children Marital status: / Number of children: 3 Highest education level completed: Some College, No Degree Current occupational status: disabled Current occupation: RN; worked as labor and delivery nurse Current gender identity: Female Special irineo needs: No Agree to transfusion: Yes Course 2 Vital Signs: Vital signs: Vital Signs Temperature 98.0 F 09/30/24 10:20 Pulse Rate 106 H 09/30/24 10:20 Respiratory Rate 17 09/30/24 10:20 Blood Pressure 164/81 09/30/24 13:43 Pulse Oximetry 95 09/30/24 10:20 Oxygen Delivery Me thod Room Air 09/30/24 10:22 MDM - Psych Medical Decision Making Patient was placed on 96 hr hold with the two affidavits provided. She will be admitted to NPU to Dr. Larson.. Chart reviewed and patient discussed with midlevel. Agree with assessment and plan. Orders written for admission Lab Data 09/30/24 09:16 09/30/24 09:16 Laboratory Results WBC 8.18 10^3/uL (3.29-11.43) 09/30/24 09:16 RBC 4.71 10^6/uL (3.85-5.65) 09/30/24 09:16 Hgb 14.00 g/dL (11.27-16.99) 09/30/24 09:16 Hct 43.1 % (36-47) 09/30/24 09:16 MCV 91.5 fl (85-98) 09/30/24 09:16 MCH 29.7 pg (27-33) 09/30/24 09:16 MCHC 32.5 g/dL (30-55) 09/30/24 09:16 RDW 13.1 % (12.1-15.1) 09/30/24 09:16 Plt Count 201 10^3/cmm (157-399) 09/30/24 09:16 MPV 10.6 fL (7.4-10.4) H 09/30/24 09:16 Neut % (Auto) 65.1 % 09/30/24 09:16 Lymph % (Auto) 24.3 % 09/30/24 09:16 Brewster % (Auto) 7.0 % 09/30/24 09:16 Eos % (Auto) 3.3 % 09/30/24 09:16 Baso % (Auto) 0.2 % 09/30/24 09:16 Neut # (Auto) 5.32 10^3/uL (1.8-7.7) 09/30/24 09:16 Lymph # (Auto) 2.0 10^3/uL (0.8-4.8) 09/30/24 09:16 Brewster # (Auto) 0.6 10^3/uL (0.2-0.9) 09/30/24 09:16 Eos # (Auto) 0.3 10^3/uL (0.0-0.8) 09/30/24 09:16 Baso # (Auto) 0.0 10^3/uL (0.0-0.1) 09/30/24 09:16 Nucleated RBC % (auto) 0 % 09/30/24 09:16 Nucleated RBCs # 0.0 /100WBC 09/30/24 09:16 Sodium 136 mmol/L (136-145) 09/30/24 09:16 Potassium 4.4 mmol/L (3.5-5.1) 09/30/24 09:16 Chloride 99 mmol/L (98-107) 09/30/24 09:16 Carbon Dioxide 25 mmol/L (22-29) 09/30/24 09:16 Anion Gap 16.4 (5-19) 09/30/24 09:16 BUN 16 mg/dL (8-23) 09/30/24 09:16 Creatinine 0.6 mg/dL (0.5-0.9) 09/30/24 09:16 GFR Calculation 100.6 mL/min (90-130) 09/30/24 09:16 Glucose 209 mg/dL (65-115) H 09/30/24 09:16 Calculated Osmolality 289 mOsm/kg (285-295) 09/30/24 09:16 Calcium 9.7 mg/dL (8.5-10.5) 09/30/24 09:16 Total Bilirubin 0.3 mg/dL (0.15-1.2) 09/30/24 09:16 AST 22 U/L (0-32) 09/30/24 09:16 ALT 25 U/L (0-33) 09/30/24 09:16 Alkaline Phosphatase 25 U/L (35-105) L 09/30/24 09:16 Total Protein 7.1 g/dL (6.6-8.7) 09/30/24 09:16 Albumin 4.5 g/dL (3.5-5.2) 09/30/24 09:16 Globulin 2.6 g/dL (1.3-4.6) 09/30/24 09:16 Salicylates 1.0 mg/dL (3-10) L 09/30/24 09:16 Urine Opiates Screen Negative ng/mL (Negative) 09/30/24 09:32 Acetaminophen < 5.0 ug/mL (10-30) L 09/30/24 09:16 Ur Barbiturates Screen Negative ng/mL (Negative) 09/30/24 09:32 Ur Phencyclidine Scrn Negative ng/mL (Negative) 09/30/24 09:32 Ur Amphetamines Screen Negative ng/mL (Negative) 09/30/24 09:32 U Benzodiazepines Scrn Negative ng/mL (Negative) 09/30/24 09:32 Urine Cocaine Screen Negative ng/mL (Negative) 09/30/24 09:32 U Marijuana (THC) Screen Positive ng/mL (Negative) H 09/30/24 09:32 Ethyl Alcohol < 10 mg/dL (0-10) 09/30/24 09:16 Discharge Plan Discharge Patient Disposition: Admitted As Inpatient Admit Provider: Felix Larson Clinical Impression: Acute psychosis Condition: Stable Coding Level of Care Code ED Commercial Pest Control Technician for Margret Breaux
[2024-09-30 09:30] LABS: Basophils % 0.2 %; Eosinophils # 0.3 10^3/uL (0.0-0.8); Eosinophils % 3.3 %; Hematocrit 43.1 % (36-47); Lymphocytes % 24.3 %; Mean Corpuscular HGB Conc 32.5 g/dL (30-55); Mean Corpuscular Hemoglobin 29.7 pg (27-33); Mean Corpuscular Volume 91.5 fl (85-98); Mean Platelet Volume 10.6 fL (7.4-10.4); Monocytes # 0.6 10^3/uL (0.2-0.9); Neutrophils # 5.32 10^3/uL (1.8-7.7); Neutrophils % 65.1 %; Nucleated Red Blood Cells % 0 %; Platelet Count 201 10^3/cmm (157-399); Red Blood Count 4.71 10^6/uL (3.85-5.65); Red Cell Distribution Width 13.1 % (12.1-15.1); White Blood Count 8.18 10^3/uL (3.29-11.43)
[2024-09-30 09:38] LABS: Alanine Aminotransferase 25 U/L (0-33); Albumin Level 4.5 g/dL (3.5-5.2); Alkaline Phosphatase 25 U/L (35-105); Anion Gap 16.4 (5-19); Aspartate Amino Transferase 22 U/L (0-32); Blood Urea Nitrogen 16 mg/dL (8-23); Calcium 9.7 mg/dL (8.5-10.5); Carbon Dioxide 25 mmol/L (22-29); Chloride 99 mmol/L (98-107); Creatinine Clr Calc Pharmacy 95.3083; Globulin 2.6 g/dL (1.3-4.6); Glomerular Filtration Rate 100.6 mL/min (90-130); Glucose 209 mg/dL (65-115); Osmolality Calculated 289 mOsm/kg (285-295); Potassium 4.4 mmol/L (3.5-5.1); Sodium 136 mmol/L (136-145); Total Bilirubin 0.3 mg/dL (0.15-1.2); Total Protein 7.1 g/dL (6.6-8.7)
[2024-09-30 09:41] LABS: Acetaminophen < 5.0 ug/mL (10-30); Alcohol Level < 10 mg/dL (0-10)
--- NOTE | 2024-09-30 09:51 | PC.PHAR ---
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 Pt has Triamcinolone cream prn on her list but I can't locate an rx to know what strength and directions. It just happens to be on the bottom of her list. Pt just finished Doxycycline hyclate 100mg bid for 10 days and Prednisone 20mg taper dosage.
[2024-09-30 10:28] LABS: Amphetamines Screen Urine Negative (Negative); Barbiturates Screen Urine Negative (Negative); Benzodiazepines Screen Urine Negative (Negative); Cocaine Screen Urine Negative (Negative); Opiate Screen Urine Negative (Negative); PCP Screen Urine Negative (Negative); THC Screen Urine Positive (Negative)
--- NOTE | 2024-09-30 11:31 | PC.NURSE ---
96 hr rights reviewed with patient @[id number] with assistance of [facility] information security consultant Abiodun Dubois. No questions verbalized at this time. All education reviewed. Pt copy left @bedside with patient. No further needs at this time.
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
[2024-09-30] MEDS: flu vacc pf 24-25 (6 mos+) SYRINGE 45 MCG IM (12:53)
[2024-09-30] MEDS: acetaminophen 325 mg Tablet 650 MG PO ×2 (13:16→20:47)
[2024-09-30] MEDS: meloxicam 7.5 mg tablet 15 MG PO (13:39)
[2024-09-30] MEDS: metformin 500 mg Tablet PO (13:39)
[2024-09-30] MEDS: estradiol 1 mg Tablet PO (13:39)
[2024-09-30] MEDS: losartan 50 mg Tablet PO (13:43)
[2024-09-30] MEDS: latanoprost 0.005% Op Soln 2.5 mL Btl 1 DROP EYE-BOTH (16:36)
[2024-09-30] MEDS: diclofenac 1% Topical Gel 100 gm 1 APPLIC TOPICAL ×2 (16:39→20:48)
[2024-09-30] MEDS: albuterol 2.5 mg/3 mL Neb INHALATION (18:15)
[2024-09-30] MEDS: pantoprazole DR 40 mg Tablet PO (18:18)
[2024-09-30] MEDS: risperiDONE 2 mg Tablet PO (18:18)
[2024-09-30] MEDS: timolol 0.5% Op Soln 5 mL Btl 1 DROP EYE-BOTH (18:19)
[2024-09-30] MEDS: trazodone 100 mg Tablet PO (20:48)
[2024-09-30] MEDS: CLONazepam 1 mg Tablet PO (23:53)
[2024-10-01] MEDS: acetaminophen 325 mg Tablet 650 MG PO ×5 (01:26→21:04)
[2024-10-01 06:00] VITALS: BP 130/85; PULSE 67; RESP 16; TEMP 36.4; O2SAT 99
[2024-10-01] MEDS: diclofenac 1% Topical Gel 100 gm 1 APPLIC TOPICAL ×4 (06:14→21:08)
[2024-10-01] MEDS: albuterol 2.5 mg/3 mL Neb INHALATION (08:37)
[2024-10-01 08:39] VITALS: PULSE 117; RESP 18; O2SAT 97
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
[2024-10-01] MEDS: CLONazepam 1 mg Tablet PO ×2 (09:17→21:04)
[2024-10-01 09:18] VITALS: BP 130/85
[2024-10-01] MEDS: guaiFENesin 600 mg Tablet PO (09:18)
[2024-10-01] MEDS: pantoprazole DR 40 mg Tablet PO ×2 (09:18→18:31)
[2024-10-01] MEDS: estradiol 1 mg Tablet PO (09:18)
[2024-10-01] MEDS: metformin 500 mg Tablet PO (09:18)
[2024-10-01] MEDS: meloxicam 7.5 mg tablet 15 MG PO (09:18)
[2024-10-01] MEDS: losartan 50 mg Tablet PO (09:18)
[2024-10-01] MEDS: latanoprost 0.005% Op Soln 2.5 mL Btl 1 DROP EYE-BOTH (09:33)
[2024-10-01] MEDS: timolol 0.5% Op Soln 5 mL Btl 1 DROP EYE-BOTH ×2 (09:34→21:05)
[2024-10-01 14:00] VITALS: BP 128/71; PULSE 90; RESP 16; TEMP 36.8; O2SAT 98
[2024-10-01] MEDS: OLANZapine 5 mg ODT PO (15:13)
[2024-10-01] MEDS: risperiDONE 2 mg Tablet PO (18:31)
[2024-10-01 19:49] VITALS: BP 159/67; PULSE 94; RESP 16; TEMP 36.9; O2SAT 99
[2024-10-01] MEDS: atorvastatin 40 mg Tablet 20 MG PO (21:05)
[2024-10-01] MEDS: trazodone 100 mg Tablet PO (21:05)
[2024-10-01] MEDS: hyDROXYzine 25 mg Capsule 50 MG PO (21:08)
[2024-10-02] VITALS (7 sets, daily range): BP systolic 112–130; BP diastolic 55–82; PULSE 82–99; RESP 16–18; TEMP 36.6–36.9; O2SAT 96–98
[2024-10-02] MEDS: acetaminophen 325 mg Tablet 650 MG PO ×3 (05:32→23:55)
[2024-10-02] MEDS: timolol 0.5% Op Soln 5 mL Btl 1 DROP EYE-BOTH ×2 (08:11→16:54)
[2024-10-02] MEDS: latanoprost 0.005% Op Soln 2.5 mL Btl 1 DROP EYE-BOTH (08:11)
[2024-10-02] MEDS: diclofenac 1% Topical Gel 100 gm 1 APPLIC TOPICAL ×4 (08:12→20:57)
[2024-10-02] MEDS: polyethylene glycol 3350 Pkt 17 gm PO (08:55)
[2024-10-02] MEDS: losartan 50 mg Tablet PO (08:55)
[2024-10-02] MEDS: meloxicam 7.5 mg tablet 15 MG PO (08:56)
[2024-10-02] MEDS: pantoprazole DR 40 mg Tablet PO ×2 (08:56→16:51)
[2024-10-02] MEDS: estradiol 1 mg Tablet PO (08:56)
[2024-10-02] MEDS: guaiFENesin 600 mg Tablet PO (08:56)
[2024-10-02] MEDS: metformin 500 mg Tablet PO (08:56)
[2024-10-02] MEDS: albuterol 2.5 mg/3 mL Neb INHALATION ×2 (08:57→15:21)
[2024-10-02] MEDS: blistex lip oint 7 gm Tube 1 APPLIC TOPICAL (09:17)
--- NOTE | 2024-10-02 14:52 | PC.NURSE ---
Ana Contacted Chaplain Jones on behalf of patient. said he will be here to see patient on 10/03/24 around 0830 after the morning prayer.
[2024-10-02] MEDS: risperiDONE 2 mg Tablet PO (16:51)
[2024-10-02] MEDS: docusate sodium 100 mg Capsule PO (16:51)
--- NOTE | 2024-10-02 17:57 | P.NPUPN_ITS ---
Subjective NPU 2 Subjective: Patient presented today reporting that she is doing okay. She reports she did get quite a bit of sleep. She identified that she needs to make some changes but she was also elevated in her focus on voodoo and her significant somatic complaints. She denied any side effects to the medication. Mental Status Exam 2 MSE Comments: This is an obese older white female in hospital scrubs looking older than her stated age with adequate grooming and limited eye contact. No abnormal movements except for mild psychomotor agitation. Cooperative with exam in mild to moderate distress. Speech was slightly increased rate and volume and somewhat pressured. Mood described as a little depressed and anxious, affect congruent. Thought process linear. Thought content: Patient denied suicidal or homicidal ideation, there were no delusions reported noted, she denied any auditory or visual hallucinations. No current thoughts to hurt or kill self or others. Significant anxiety related to rastafarian activities, financial concerns, and recent stressors. Long history of depression, currently experiencing mood instability, alternating between manic and depressive states. Reports severe insomnia, sleeping only 1.5 to 4 hours per night. Recent stressors include the of a dog, financial concerns, and rastafarian-related stress. Attention and concentration were intact and memory appeared somewhat reliable but none were formally tested. She is alert and oriented x3. Insight and judgment limited impulse control limited versus impaired. Vitals/I&O/Wt Last Vital Signs Temp 98.1 F 10/02/24 14:00 Pulse 86 10/02/24 15:23 Resp 16 10/02/24 15:23 BP 112/66 10/02/24 14:00 Pulse Ox 98 10/02/24 15:23 O2 Del Method Room Air 10/02/24 15:23 Data NPU 09/30/24 09:16 09/30/24 09:16 Micro: Microbiology 10/02/24 13:58 Occult Blood (FIT) - Final Stool Routine Collection Microbiology 10/02/24 13:58 Stool Routine Collection Occult Blood (FIT) - Final A&P Assessment and plan (1) Acute psychosis: (2) Anxiety: (3) Bipolar 1 disorder: Plan This is a 28-year-old white female known from previous outpatient services that were limited in nature. The patient presents with a history of bipolar disorder, which was diagnosed in their early 40s, following a period of substance use and depression. The patient reports recent exacerbations of mood instability, characterized by alternating periods of gordo and depressive symptoms, including insomnia and significant mood swings. The patient has a complex psychiatric history with multiple hospital admissions for psychiatric reasons, the most recent being five years ago. The patient is currently on a regimen of Klonopin, trazodone, and risperidone, with recent adjustments in dosages. There is a noted concern regarding the use of Klonopin, particularly given the patient's age and the associated risk of falls. The patient also reports a history of substance use, including methamphetamine and opiates, but has been in recovery for 24 years. The patient denies any current suicidal ideation or self-injurious behavior. There is a family history of mental health issues on both sides, but no known history of addiction or suicide. The patient expresses significant anxiety related to personal and financial stressors, as well as a recent bereavement of a pet. Overall, the patient's presentation is consistent with a diagnosis of bipolar disorder with recent mood destabilization, requiring further psychiatric evaluation and management. 1. Continue current medication. We will evaluate medication and look for possible placement for changing improvement. Concerns about regular use of Klonopin exist at her age. She reports she is getting sleep and we discussed needing to decrease her Klonopin and likely discontinue marijuana use. 2. Continue every 15 minute checks for safety 3. Encourage individual, group and milieu therapy. 4. Encourage sober living treatment after discharge at the highest level care to which she is willing to commit. Involuntary Hold Information 2 96 Hour Hold: 96 Hour Involuntary Admission: Yes Attestations NPU 2 Medical Necessity Statement*: Inpatient hospitalization is medically necessary and the clinically appropriate intervention at this time. We will monitor/initiate medications and make changes as indicated. Likely length of stay 3-5 days. Coding Level of Care Code Acute Code for [facility] Fwd Diagnoses Acute psychosis F23 Anxiety F41.9 Bipolar 1 disorder F31.9
[2024-10-02] MEDS: atorvastatin 40 mg Tablet 20 MG PO (20:55)
[2024-10-02] MEDS: CLONazepam 1 mg Tablet PO (20:55)
[2024-10-02] MEDS: trazodone 100 mg Tablet PO (20:56)
[2024-10-02] MEDS: hyDROXYzine 25 mg Capsule 50 MG PO (20:56)
[2024-10-02] MEDS: OLANZapine 5 mg ODT PO (23:55)
[2024-10-03] MEDS: blistex lip oint 7 gm Tube 1 APPLIC TOPICAL ×3 (04:16→17:18)
[2024-10-03 06:00] VITALS: BP 122/68; PULSE 109; RESP 18; TEMP 37.2; O2SAT 96
[2024-10-03] MEDS: diclofenac 1% Topical Gel 100 gm 1 APPLIC TOPICAL ×4 (08:32→17:19)
[2024-10-03] MEDS: polyethylene glycol 3350 Pkt 17 gm PO (08:32)
[2024-10-03] MEDS: meloxicam 7.5 mg tablet 15 MG PO (08:32)
[2024-10-03] MEDS: estradiol 1 mg Tablet PO (08:32)
[2024-10-03 08:33] VITALS: BP 122/68
[2024-10-03] MEDS: metformin 500 mg Tablet PO (08:33)
[2024-10-03] MEDS: pantoprazole DR 40 mg Tablet PO ×2 (08:33→17:18)
[2024-10-03] MEDS: CLONazepam 1 mg Tablet PO ×2 (08:33→20:48)
[2024-10-03] MEDS: guaiFENesin 600 mg Tablet PO (08:33)
[2024-10-03] MEDS: docusate sodium 100 mg Capsule PO ×2 (08:33→17:18)
[2024-10-03] MEDS: losartan 50 mg Tablet PO (08:33)
[2024-10-03] MEDS: hyDROXYzine 25 mg Capsule 50 MG PO ×2 (08:36→20:47)
[2024-10-03] MEDS: acetaminophen 325 mg Tablet 650 MG PO ×3 (08:36→17:18)
[2024-10-03] MEDS: timolol 0.5% Op Soln 5 mL Btl 1 DROP EYE-BOTH ×2 (08:37→18:05)
[2024-10-03] MEDS: latanoprost 0.005% Op Soln 2.5 mL Btl 1 DROP EYE-BOTH (08:37)
[2024-10-03] MEDS: ALBUTEROL 2 EACH INHALATION (08:44)
[2024-10-03 14:00] VITALS: BP 129/81; PULSE 88; RESP 18; TEMP 36.6; O2SAT 97
[2024-10-03] MEDS: risperiDONE 2 mg Tablet PO (17:18)
[2024-10-03 20:24] VITALS: BP 143/84; PULSE 86; RESP 18; TEMP 36.7; O2SAT 99
[2024-10-03] MEDS: atorvastatin 40 mg Tablet 20 MG PO (20:47)
[2024-10-03] MEDS: trazodone 100 mg Tablet PO (20:48)
--- NOTE | 2024-10-03 21:30 | P.NPUPN_ITS ---
Subjective NPU 2 Subjective: Patient presented today reporting that she is doing okay. We discussed the possibility of an extension given her continued hyperreligious behavior per staff reports and direct observation. She is very focused on the possibility of discharge tomorrow and we discussed meeting early to determine what is in her best interest. She denied any side effects to the medication and reports that now that she has gotten regular sleep she is doing fine. We again discussed concerns about the Klonopin as well as any cannabis use. Mental Status Exam 2 MSE Comments: This is an obese older white female in hospital scrubs looking older than her stated age with adequate grooming and limited eye contact. No abnormal movements except for mild psychomotor agitation. Cooperative with exam in mild to moderate distress. Speech was slightly increased rate and volume and somewhat pressured. Mood described as a little depressed and anxious, affect congruent. Thought process linear. Thought content: Patient denied suicidal or homicidal ideation, there were no delusions reported noted, she denied any auditory or visual hallucinations. No current thoughts to hurt or kill self or others. Significant anxiety related to confucianism activities, financial concerns, and recent stressors. Long history of depression, currently experiencing mood instability, alternating between manic and depressive states. Reports severe insomnia, sleeping only 1.5 to 4 hours per night. Recent stressors include the of a dog, financial concerns, and confucianism-related stress. Attention and concentration were intact and memory appeared somewhat reliable but none were formally tested. She is alert and oriented x3. Insight and judgment limited impulse control limited versus impaired. Vitals/I&O/Wt Last Vital Signs Temp 98.1 F 10/03/24 20:24 Pulse 86 10/03/24 20:24 Resp 18 10/03/24 20:24 BP 143/84 10/03/24 20:24 Pulse Ox 99 10/03/24 20:24 O2 Del Method Room Air 10/03/24 06:00 Data NPU 09/30/24 09:16 09/30/24 09:16 Micro: Microbiology 10/02/24 13:58 Occult Blood (FIT) - Final Stool Routine Collection Microbiology 10/02/24 13:58 Stool Routine Collection Occult Blood (FIT) - Final A&P Assessment and plan (1) Acute psychosis: (2) Anxiety: (3) Bipolar 1 disorder: Plan This is a 28-year-old white female known from previous outpatient services that were limited in nature. The patient presents with a history of bipolar disorder, which was diagnosed in their early 40s, following a period of substance use and depression. The patient reports recent exacerbations of mood instability, characterized by alternating periods of gordo and depressive symptoms, including insomnia and significant mood swings. The patient has a complex psychiatric history with multiple hospital admissions for psychiatric reasons, the most recent being five years ago. The patient is currently on a regimen of Klonopin, trazodone, and risperidone, with recent adjustments in dosages. There is a noted concern regarding the use of Klonopin, particularly given the patient's age and the associated risk of falls. The patient also reports a history of substance use, including methamphetamine and opiates, but has been in recovery for 24 years. The patient denies any current suicidal ideation or self-injurious behavior. There is a family history of mental health issues on both sides, but no known history of addiction or suicide. The patient expresses significant anxiety related to personal and financial stressors, as well as a recent bereavement of a pet. Overall, the patient's presentation is consistent with a diagnosis of bipolar disorder with recent mood destabilization, requiring further psychiatric evaluation and management. 1. Continue current medication. We will evaluate medication and look for possible placement for changing improvement. Concerns about regular use of Klonopin exist at her age. She reports she is getting sleep and we discussed needing to decrease her Klonopin and likely discontinue marijuana use. 2. Continue every 15 minute checks for safety 3. Encourage individual, group and milieu therapy. 4. Encourage sober living treatment after discharge at the highest level care to which she is willing to commit. 5. Discussed possibility of discharge at the beginning of the week but the possible to file for 21-day hold. Involuntary Hold Information 2 96 Hour Hold: 96 Hour Involuntary Admission: Yes Attestations NPU 2 Medical Necessity Statement*: Inpatient hospitalization is medically necessary and the clinically appropriate intervention at this time. We will monitor/initiate medications and make changes as indicated. Likely length of stay 3-5 days. Coding Level of Care Code Acute Code for [facility] Fwd Diagnoses Acute psychosis F23 Anxiety F41.9 Bipolar 1 disorder F31.9
[2024-10-03 22:55] VITALS: PULSE 89; RESP 17; O2SAT 98
[2024-10-03] MEDS: albuterol 2.5 mg/3 mL Neb INHALATION (22:55)
[2024-10-04] MEDS: acetaminophen 325 mg Tablet 650 MG PO ×4 (00:24→20:49)
[2024-10-04] MEDS: OLANZapine 5 mg ODT PO ×2 (00:24→20:43)
[2024-10-04] MEDS: haloperidol 5 mg Tablet PO ×2 (02:31→21:56)
[2024-10-04 06:00] VITALS: RESP 16
[2024-10-04 08:23] VITALS: BP 168/76; PULSE 114; RESP 19; TEMP 36.4; O2SAT 96
[2024-10-04 09:00] VITALS: BP 168/76
[2024-10-04] MEDS: docusate sodium 100 mg Capsule PO ×2 (09:00→17:00)
[2024-10-04] MEDS: estradiol 1 mg Tablet PO (09:00)
[2024-10-04] MEDS: diclofenac 1% Topical Gel 100 gm 1 APPLIC TOPICAL ×4 (09:00→21:57)
[2024-10-04] MEDS: guaiFENesin 600 mg Tablet PO (09:00)
[2024-10-04] MEDS: metformin 500 mg Tablet PO (09:00)
[2024-10-04] MEDS: pantoprazole DR 40 mg Tablet PO ×2 (09:00→17:00)
[2024-10-04] MEDS: polyethylene glycol 3350 Pkt 17 gm PO (09:00)
[2024-10-04] MEDS: losartan 50 mg Tablet PO (09:00)
[2024-10-04] MEDS: timolol 0.5% Op Soln 5 mL Btl 1 DROP EYE-BOTH ×2 (09:01→17:00)
[2024-10-04] MEDS: latanoprost 0.005% Op Soln 2.5 mL Btl 1 DROP EYE-BOTH (09:02)
[2024-10-04] MEDS: meloxicam 7.5 mg tablet 15 MG PO (09:05)
--- NOTE | 2024-10-04 09:23 | P.NPUPN_ITS ---
Subjective NPU 2 Subjective: Patient presented today reporting that she is a little frustrated that she is having to stay. She does not want to miss her family members scientologist on Monday. She also was reading into we hold that she would likely be here till [place]. We discussed the importance of her continuing to decrease her Klonopin usage as well as avoiding marijuana usage which she reports it was just the wrong strain. She is excepting that this does not have to be any specific length of time. We also discussed the risk benefits alternatives of changing her over to Invega from the [facility] and she understood and agreed to proceed as is documented in this note. Mental Status Exam 2 MSE Comments: This is an obese older white female in hospital scrubs looking older than her stated age with adequate grooming and limited eye contact. No abnormal movements except for mild psychomotor agitation. Cooperative with exam in mild to moderate distress. Speech was slightly increased rate and volume and somewhat pressured. Mood described as a little depressed and anxious, affect congruent. Thought process linear. Thought content: Patient denied suicidal or homicidal ideation, there were no delusions reported noted, she denied any auditory or visual hallucinations. No current thoughts to hurt or kill self or others. Significant anxiety related to denominational activities, financial concerns, and recent stressors. Long history of depression, currently experiencing mood instability, alternating between manic and depressive states. Reports severe insomnia, sleeping only 1.5 to 4 hours per night. Recent stressors include the of a dog, financial concerns, and denominational-related stress. Attention and concentration were intact and memory appeared somewhat reliable but none were formally tested. She is alert and oriented x3. Insight and judgment limited impulse control limited versus impaired. Vitals/I&O/Wt Last Vital Signs Temp 97.6 F 10/04/24 08:23 Pulse 114 H 10/04/24 08:23 Resp 19 H 10/04/24 08:23 BP 168/76 10/04/24 09:00 Pulse Ox 96 10/04/24 08:23 O2 Del Method Room Air 10/04/24 08:23 Data NPU 09/30/24 09:16 09/30/24 09:16 A&P Assessment and plan (1) Acute psychosis: (2) Anxiety: (3) Bipolar 1 disorder: Plan This is a 28-year-old white female known from previous outpatient services that were limited in nature. The patient presents with a history of bipolar disorder, which was diagnosed in their early 40s, following a period of substance use and depression. The patient reports recent exacerbations of mood instability, characterized by alternating periods of gordo and depressive symptoms, including insomnia and significant mood swings. The patient has a complex psychiatric history with multiple hospital admissions for psychiatric reasons, the most recent being five years ago. The patient is currently on a regimen of Klonopin, trazodone, and risperidone, with recent adjustments in dosages. There is a noted concern regarding the use of Klonopin, particularly given the patient's age and the associated risk of falls. The patient also reports a history of substance use, including methamphetamine and opiates, but has been in recovery for 24 years. The patient denies any current suicidal ideation or self-injurious behavior. There is a family history of mental health issues on both sides, but no known history of addiction or suicide. The patient expresses significant anxiety related to personal and financial stressors, as well as a recent bereavement of a pet. Overall, the patient's presentation is consistent with a diagnosis of bipolar disorder with recent mood destabilization, requiring further psychiatric evaluation and management. 1. Continue current medication. We will evaluate medication and look for possible placement for changing improvement. Concerns about regular use of Klonopin exist at her age. She reports she is getting sleep and we discussed needing to decrease her Klonopin and likely discontinue marijuana use. Will decrease Risperdal to 1 mg p.o. q. evening for 7 days then discontinue and start Invega 3 mg daily. 2. Continue every 15 minute checks for safety 3. Encourage individual, group and milieu therapy. 4. Encourage sober living treatment after discharge at the highest level care to which she is willing to commit. 5. Discussed possibility of discharge at the beginning of the week but we filed for 21-day hold. Involuntary Hold Information 2 96 Hour Hold: 96 Hour Involuntary Admission: Yes Attestations NPU 2 Medical Necessity Statement*: Inpatient hospitalization is medically necessary and the clinically appropriate intervention at this time. We will monitor/initiate medications and make changes as indicated. Likely length of stay 3-5 days. Coding Level of Care Code Acute Code for [facility] Fwd Diagnoses Acute psychosis F23 Anxiety F41.9 Bipolar 1 disorder F31.9
[2024-10-04] MEDS: nicotine 21 mg Patch 1 PATCH TRANSDERMA (11:29)
[2024-10-04] MEDS: albuterol 2.5 mg/3 mL Neb INHALATION (11:44)
[2024-10-04 11:45] VITALS: PULSE 100; RESP 16; O2SAT 96
[2024-10-04 14:00] VITALS: BP 137/84; PULSE 97; RESP 19; TEMP 36.6; O2SAT 96
[2024-10-04] MEDS: hyDROXYzine 25 mg Capsule 50 MG PO ×2 (15:54→21:56)
[2024-10-04] MEDS: ALBUTEROL 2 EACH INHALATION (16:18)
[2024-10-04] MEDS: risperiDONE 2 mg Tablet PO (17:00)
[2024-10-04] MEDS: atorvastatin 40 mg Tablet 20 MG PO (20:41)
[2024-10-04] MEDS: trazodone 100 mg Tablet PO (20:42)
[2024-10-04 21:24] VITALS: BP 111/68; PULSE 101; RESP 18; TEMP 36.8; O2SAT 98
[2024-10-04] MEDS: eucerin cream 113 gm Jar 1 APPLIC TOPICAL (21:57)
[2024-10-05] MEDS: acetaminophen 325 mg Tablet 650 MG PO ×3 (02:25→20:47)
[2024-10-05] MEDS: blistex lip oint 7 gm Tube 1 APPLIC TOPICAL ×2 (02:26→14:59)
[2024-10-05] MEDS: OLANZapine 5 mg ODT PO ×2 (02:29→17:19)
[2024-10-05 06:00] VITALS: BP 120/73; PULSE 98; RESP 17; TEMP 36.6; O2SAT 97
[2024-10-05 09:04] VITALS: BP 120/73
[2024-10-05] MEDS: pantoprazole DR 40 mg Tablet PO ×2 (09:04→17:18)
[2024-10-05] MEDS: losartan 50 mg Tablet PO (09:04)
[2024-10-05] MEDS: paliperidone ER 3 mg Tablet PO (09:04)
[2024-10-05] MEDS: metformin 500 mg Tablet PO (09:04)
[2024-10-05] MEDS: docusate sodium 100 mg Capsule PO ×2 (09:04→17:18)
[2024-10-05] MEDS: estradiol 1 mg Tablet PO (09:04)
[2024-10-05] MEDS: meloxicam 7.5 mg tablet 15 MG PO (09:04)
[2024-10-05] MEDS: guaiFENesin 600 mg Tablet PO (09:04)
[2024-10-05] MEDS: diclofenac 1% Topical Gel 100 gm 1 APPLIC TOPICAL ×4 (09:05→20:49)
[2024-10-05] MEDS: latanoprost 0.005% Op Soln 2.5 mL Btl 1 DROP EYE-BOTH (09:05)
[2024-10-05] MEDS: timolol 0.5% Op Soln 5 mL Btl 1 DROP EYE-BOTH ×2 (09:06→19:01)
[2024-10-05] MEDS: eucerin cream 113 gm Jar 1 APPLIC TOPICAL ×4 (09:06→20:48)
--- NOTE | 2024-10-05 09:25 | P.NPUPN_ITS ---
Subjective NPU 2 Subjective: Patient presented today reporting that she is feeling okay. She was expressing worries about going to her hearing on Monday and missing her family members druze tomorrow. We discussed the importance of us helping her get her mental health on track to be prepared for discharge. We discussed the possibility of getting discharged on Monday before the hearing. She reports that she is tolerating the transition to Invega from Risperdal fine and denies any side effects to the medication. Mental Status Exam 2 MSE Comments: This is an obese older white female in hospital scrubs looking older than her stated age with adequate grooming and limited eye contact. No abnormal movements except for mild psychomotor agitation. Cooperative with exam in mild to moderate distress. Speech was slightly increased rate and volume and somewhat pressured. Mood described as better, affect congruent and less energetic and anxious. Thought process linear. Thought content: Patient denied suicidal or homicidal ideation, there were no delusions reported noted, she denied any auditory or visual hallucinations. No current thoughts to hurt or kill self or others. Significant anxiety related to latter-day activities, financial concerns, and recent stressors. Long history of depression, currently experiencing mood instability, alternating between manic and depressive states. Reports severe insomnia, sleeping only 1.5 to 4 hours per night. Recent stressors include the of a dog, financial concerns, and latter-day-related stress. Attention and concentration were intact and memory appeared somewhat reliable but none were formally tested. She is alert and oriented x3. Insight and judgment limited impulse control limited versus impaired. Vitals/I&O/Wt Last Vital Signs Temp 97.8 F 10/05/24 06:00 Pulse 98 10/05/24 06:00 Resp 17 10/05/24 06:00 BP 120/73 10/05/24 09:04 Pulse Ox 97 10/05/24 06:00 O2 Del Method Room Air 10/04/24 14:00 Data NPU 09/30/24 09:16 09/30/24 09:16 A&P Assessment and plan (1) Acute psychosis: (2) Anxiety: (3) Bipolar 1 disorder: Plan This is a 28-year-old white female known from previous outpatient services that were limited in nature. The patient presents with a history of bipolar disorder, which was diagnosed in their early 40s, following a period of substance use and depression. The patient reports recent exacerbations of mood instability, characterized by alternating periods of gordo and depressive symptoms, including insomnia and significant mood swings. The patient has a complex psychiatric history with multiple hospital admissions for psychiatric reasons, the most recent being five years ago. The patient is currently on a regimen of Klonopin, trazodone, and risperidone, with recent adjustments in dosages. There is a noted concern regarding the use of Klonopin, particularly given the patient's age and the associated risk of falls. The patient also reports a history of substance use, including methamphetamine and opiates, but has been in recovery for 24 years. The patient denies any current suicidal ideation or self-injurious behavior. There is a family history of mental health issues on both sides, but no known history of addiction or suicide. The patient expresses significant anxiety related to personal and financial stressors, as well as a recent bereavement of a pet. Overall, the patient's presentation is consistent with a diagnosis of bipolar disorder with recent mood destabilization, requiring further psychiatric evaluation and management. 1. Continue current medication. We will evaluate medication and look for possible placement for changing improvement. Concerns about regular use of Klonopin exist at her age. She reports she is getting sleep and we discussed needing to decrease her Klonopin and likely discontinue marijuana use. Will decrease Risperdal to 1 mg p.o. q. evening for 7 days then discontinue and started Invega 3 mg daily. 2. Continue every 15 minute checks for safety 3. Encourage individual, group and milieu therapy. 4. Encourage sober living treatment after discharge at the highest level care to which she is willing to commit. 5. Discussed possibility of discharge at the beginning of the week but we filed for 21-day hold. Involuntary Hold Information 2 96 Hour Hold: 96 Hour Involuntary Admission: Yes Attestations NPU 2 Medical Necessity Statement*: Inpatient hospitalization is medically necessary and the clinically appropriate intervention at this time. We will monitor/initiate medications and make changes as indicated. Likely length of stay 2-4 days. Coding Level of Care Code Acute Code for [facility] Fwd Diagnoses Acute psychosis F23 Anxiety F41.9 Bipolar 1 disorder F31.9
[2024-10-05] MEDS: nicotine 21 mg Patch 1 PATCH TRANSDERMA (09:41)
[2024-10-05] MEDS: albuterol 2.5 mg/3 mL Neb INHALATION (11:10)
[2024-10-05 11:12] VITALS: PULSE 95; RESP 16; O2SAT 97
[2024-10-05] MEDS: hyDROXYzine 25 mg Capsule 50 MG PO ×2 (12:52→20:47)
[2024-10-05 14:00] VITALS: BP 150/76; PULSE 114; RESP 17; TEMP 36.8; O2SAT 96
[2024-10-05] MEDS: risperiDONE 2 mg Tablet 1 MG PO (17:19)
[2024-10-05] MEDS: atorvastatin 40 mg Tablet 20 MG PO (20:46)
[2024-10-05] MEDS: trazodone 100 mg Tablet PO (20:47)
[2024-10-05 22:00] VITALS: BP 122/71; PULSE 104; RESP 17; TEMP 36.8; O2SAT 96
[2024-10-05] MEDS: haloperidol 5 mg Tablet PO (22:09)
[2024-10-06 06:00] VITALS: BP 120/89; PULSE 103; RESP 16; TEMP 36.8; O2SAT 98
[2024-10-06 09:29] VITALS: BP 120/89
[2024-10-06] MEDS: estradiol 1 mg Tablet PO (09:29)
[2024-10-06] MEDS: losartan 50 mg Tablet PO (09:29)
[2024-10-06] MEDS: guaiFENesin 600 mg Tablet PO (09:29)
[2024-10-06] MEDS: meloxicam 7.5 mg tablet 15 MG PO (09:29)
[2024-10-06] MEDS: pantoprazole DR 40 mg Tablet PO ×2 (09:29→18:02)
[2024-10-06] MEDS: metformin 500 mg Tablet PO (09:29)
[2024-10-06] MEDS: paliperidone ER 3 mg Tablet PO (09:30)
[2024-10-06] MEDS: diclofenac 1% Topical Gel 100 gm 1 APPLIC TOPICAL ×4 (09:30→22:13)
[2024-10-06] MEDS: docusate sodium 100 mg Capsule PO ×2 (09:30→18:08)
[2024-10-06] MEDS: eucerin cream 113 gm Jar 1 APPLIC TOPICAL (09:30)
[2024-10-06] MEDS: nicotine 21 mg Patch 1 PATCH TRANSDERMA (09:31)
[2024-10-06] MEDS: timolol 0.5% Op Soln 5 mL Btl 1 DROP EYE-BOTH ×2 (09:31→18:05)
[2024-10-06] MEDS: latanoprost 0.005% Op Soln 2.5 mL Btl 1 DROP EYE-BOTH (09:31)
--- NOTE | 2024-10-06 11:23 | W.PM.NPUPNS ---
Subjective NPU Subjective: Patient presented today reporting that she is doing great. She expressed that this was the greatest they ever but also the worst day ever. Staff reports of continued hyperreligious soft which was identified on direct observation. She had different somatic complaint were explored by the hospitalist to her approval and so she was happy about that. We discussed her 21-day hold hearing on Monday and the fact that there was certainly a possibility that with things going well with the Invega that she could leave prior to the hearing but likely this week. She denied any side effects to the medication. Mental Status Exam MSE Comments: This is an obese older white female in hospital scrubs looking older than her stated age with adequate grooming and limited eye contact. No abnormal movements except for mild psychomotor agitation. Cooperative with exam in mild distress. Speech was slightly increased rate and volume and somewhat pressured. Mood described as better, affect congruent and less energetic and anxious. Thought process linear. Thought content: Patient denied suicidal or homicidal ideation, there were no delusions reported noted, she denied any auditory or visual hallucinations. No current thoughts to hurt or kill self or others. Significant anxiety related to pentecostal activities, financial concerns, and recent stressors. Long history of depression, currently experiencing mood instability, alternating between manic and depressive states. Reports severe insomnia, sleeping only 1.5 to 4 hours per night. Recent stressors include the of a dog, financial concerns, and pentecostal-related stress. Attention and concentration were intact and memory appeared somewhat reliable but none were formally tested. She is alert and oriented x3. Insight and judgment limited impulse control limited versus impaired. Vitals/I&O/Wt Last Vital Signs Temp 98.2 F 10/06/24 06:00 Pulse 103 H 10/06/24 06:00 Resp 16 10/06/24 06:00 BP 120/89 10/06/24 09:29 Pulse Ox 98 10/06/24 06:00 O2 Del Method Room Air 10/05/24 11:12 Weight last 48 hrs Weight 82.1 kg Data NPU 10/06/24 17:56 10/06/24 17:56 A&P Assessment and plan (1) Acute psychosis: (2) Anxiety: (3) Bipolar 1 disorder: Plan This is a 64-year-old white female known from previous outpatient services that were limited in nature. The patient presents with a history of bipolar disorder, which was diagnosed in their early 40s, following a period of substance use and depression. The patient reports recent exacerbations of mood instability, characterized by alternating periods of gordo and depressive symptoms, including insomnia and significant mood swings. The patient has a complex psychiatric history with multiple hospital admissions for psychiatric reasons, the most recent being five years ago. The patient is currently on a regimen of Klonopin, trazodone, and risperidone, with recent adjustments in dosages. There is a noted concern regarding the use of Klonopin, particularly given the patient's age and the associated risk of falls. The patient also reports a history of substance use, including methamphetamine and opiates, but has been in recovery for 24 years. The patient denies any current suicidal ideation or self-injurious behavior. There is a family history of mental health issues on both sides, but no known history of addiction or suicide. The patient expresses significant anxiety related to personal and financial stressors, as well as a recent bereavement of a pet. Overall, the patient's presentation is consistent with a diagnosis of bipolar disorder with recent mood destabilization, requiring further psychiatric evaluation and management. 1. Continue current medication. We will evaluate medication and look for possible placement for changing improvement. Concerns about regular use of Klonopin exist at her age. She reports she is getting sleep and we discussed needing to decrease her Klonopin and likely discontinue marijuana use. Will decrease Risperdal to 1 mg p.o. q. evening for 7 days then discontinue and started Invega 3 mg daily. Increase Invega to 6 mg. 2. Continue every 15 minute checks for safety 3. Encourage individual, group and milieu therapy. 4. Encourage sober living treatment after discharge at the highest level care to which she is willing to commit. 5. Discussed possibility of discharge at the beginning of the week but we filed for 21-day hold. 6. Appreciate hospitalist consult for multiple somatic concerns. They identified some issues with her breathing that were amenable to antibiotics and we will continue to follow recommendations as indicated. Involuntary Hold Information 96 Hour Hold: 96 Hour Involuntary Admission: Yes Attestations NPU Medical Necessity Statement*: Inpatient hospitalization is medically necessary and the clinically appropriate intervention at this time. We will monitor/initiate medications and make changes as indicated. Likely length of stay 1-3 days. Coding Level of Care Code Acute Code for [facility] Diagnoses Acute psychosis F23 Anxiety F41.9 Bipolar 1 disorder F31.9
--- NOTE | 2024-10-06 13:50 | XRR_ITS ---
PROCEDURE INFORMATION: Exam: XR Chest Exam date and time: 10/06/2024 2:59 PM Age: 64 years old Clinical indication: Cough; Prior surgery; Surgery date: 6+ months; Surgery type: Cardiac cath; Additional info: R/O pna TECHNIQUE: Imaging protocol: Radiologic exam of the chest. Views: 1 view. COMPARISON: No relevant prior studies available. FINDINGS: Lungs: Unremarkable. No consolidation. Pleural spaces: Unremarkable. No pleural effusion. No pneumothorax. Heart/Mediastinum: Unremarkable. No cardiomegaly. Diaphragm: Asymmetric elevation of the right hemidiaphragm. Bones/joints: Unremarkable. XR/XR chest 1V portable [id number] IMPRESSION: No acute cardiopulmonary findings.
--- NOTE | 2024-10-06 13:52 | PM.CONSULT ---
Providers/Reason For Consult Consulting Physician/Specialty*: Deisi Sue MD/Internal medicine Reason for Consult*: lesion on fingertip, coughing, asthma flare? Attending Physician: Felix Larson MD Primary Care Provider: Ellie Maya MD History of Present Illness History of Present Illness Elsa Doss is a 64 year old female with past medical history of colonic polyps, seizures, GERD, anxiety, overactive bladder, type 2 diabetes mellitus, history of stroke, bipolar disorder, hypertension who is currently admitted on the Neuropsych Unit. Patient has been reporting a cough and states has a history of asthma. She states she is bringing up green and brown sputum. She states she is allergic to ciprofloxacin. Denies a fever however has not felt okay and reports some malaise. Says after she has a breathing treatment she feels somewhat better. She also complains of a small lesion on her left middle finger tip with a puncture wound. She states she has fake nails on and usually goes for a many pedicure. She had a manicure?right before hospitalization. She says the fingertip is painful and upon examination there seems to be mild amount of pus. No evidence of felon and fingertip. Denies chest pain, abdominal pain nausea vomiting diarrhea at this time. Medications/Allergies Home Medications Medication Instructions Recorded Confirmed Last Taken Type losartan 50 mg tablet 50 mg PO DAILY 12/16/19 09/30/24 09/29/24 History atorvastatin 10 mg tablet (Lipitor) 10 mg PO QPM 08/09/22 09/30/24 09/29/24 History meloxicam 15 mg tablet 15 mg PO DAILY 08/09/22 09/30/24 09/29/24 History clonazepam 1 mg tablet (Klonopin) 1 mg PO BID PRN anxiety #60 tabs 07/23/24 09/30/24 Unknown Rx estradiol 1 mg tablet 1 mg PO DAILY #90 tabs 07/23/24 09/30/24 09/29/24 Rx famotidine 40 mg tablet (Pepcid) 40 mg PO DAILY 07/23/24 09/30/24 09/29/24 History metformin 500 mg tablet 500 mg PO DAILY #90 tabs 07/23/24 09/30/24 09/29/24 Rx trospium 20 mg tablet 20 mg PO BID #180 tabs 07/23/24 09/30/2424 Rx omeprazole 40 mg capsule,delayed 40 mg PO BID #180 caps 09/19/24 09/30/24 09/29/24 Rx release acetaminophen 325 mg tablet 325 mg PO QID PRN Pain 09/23/24 09/30/24 Unknown History (Tylenol) Metamucil Fiber Gummies 2 gummy PO BID 09/30/24 09/30/24 09/29/24 History acetaminophen 500 mg tablet 1,000 mg PO Q6H PRN Pain 09/30/24 09/30/24 09/30/24 History (Tylenol Extra Strength) albuterol sulfate 90 mcg/actuation 2 puff inhalation Q6H PRN 09/30/24 09/30/24 Unknown History aerosol inhaler Shortness Of Breath biotin 5 mg tablet 5 mg PO DAILY 09/30/24 09/30/24 09/29/24 History fexofenadine 180 mg tablet 180 mg PO DAILY 09/30/24 09/30/24 09/29/24 History guaifenesin 600 mg tablet, 600 mg PO QAM 09/30/24 09/30/24 09/29/24 History extended release 12 hr (Mucinex) latanoprost 0.005 % eye drops 1 drp ophthalmic (eye) DAILY 09/30/24 09/30/24 09/29/24 History multivitamin 1 tab PO DAILY 09/30/24 09/30/24 09/29/24 History omega [id number]-fish oil 1,000 mg 1 cap PO BID 09/30/24 09/30/24 09/29/24 History (120 mg-180 mg) capsule (Fish Oil) risperidone 2 mg tablet 2 mg PO QPM 09/30/24 09/30/24 09/29/24 History timolol maleate 0.5 % eye drops 1 drp ophthalmic (eye) BID 09/30/24 09/30/24 09/29/24 History trazodone 100 mg tablet 100 mg PO BID 09/30/24 09/30/24 09/29/24 History Allergies Allergy/AdvReac Type Severity Reaction Status Date / Time ciprofloxacin [From Cipro] Allergy Severe ALGY-Anaphy Verified 09/19/24 09:34 laxis divalproex sodium Allergy Unknown Unknown Verified 09/19/24 09:34 [From Depakote] donepezil [From Aricept] Allergy ADR-Nausea Verified 09/19/24 09:34 fluoxetine [From Prozac] Allergy Unknown Verified 09/19/24 09:34 fluticasone Allergy ADR-Gastrointestinal Verified 09/19/24 09:34 [From Advair Diskus] Upset lamotrigine [From Lamictal] Allergy ADR-Nausea Verified 09/19/24 09:34 phentermine Allergy Unknown Verified 09/19/24 09:34 quetiapine [From Seroquel] Allergy ADR-Gastrointestinal Verified 09/19/24 09:34 Upset salmeterol Allergy ADR-Gastrointestinal Verified 09/19/24 09:34 [From Advair Diskus] Upset tamsulosin Allergy ALGY-Rash Verified 09/19/24 09:34 thiethylperazine Allergy ADR-Shakine Verified 09/19/24 09:34 [From Torecan] ss varenicline [From Chantix] Allergy ADR-Gastrointestinal Verified 09/19/24 09:34 Upset zonisamide [From Zonegran] Allergy ADV-Weaknes Verified 09/19/24 09:34 s Current Medications Generic Name Dose Route Start Last Admin Trade Name Freq PRN Reason Stop Dose Admin Acetaminophen 650 mg 09/30/24 10:19 10/05/24 20:47 Acetaminophen 325 Mg Tablet PO 650 mg Q4H PRN Administration MILD PAIN Albuterol Sulfate 2.5 mg 09/30/24 18:00 10/05/24 11:10 Albuterol 2.5 Mg/3 Ml Neb INHALATION 2.5 mg Q4H PRN Administration SHORTNESS OF BREATH Atorvastatin Calcium 20 mg 10/01/24 21:00 10/05/24 20:46 Atorvastatin 40 Mg Tablet PO 20 mg BEDTIME MEE Administration Camphor/Menthol/Phenol 1 applic 09/30/24 10:19 10/05/24 14:59 Blistex Lip Oint 7 Gm Tube TOPICAL 1 applic Q1H PRN Administration DRYNESS Diclofenac Sodium 1 applic 09/30/24 17:00 10/06/24 09:30 Diclofenac 1% Topical Gel 100 Gm TOPICAL 1 applic QID MEE Administration Docusate Sodium 100 mg 10/02/24 18:00 10/06/24 09:30 Docusate Sodium 100 Mg Capsule PO 100 mg BID MEE Administration Estradiol 1 mg 09/30/24 13:00 12/08/24 09:29 Estradiol 1 Mg Tablet PO 1 mg DAILY MEE Administration Guaifenesin 600 mg 10/01/24 09:00 10/06/24 09:29 Guaifenesin 600 Mg Tablet PO 600 mg DAILY MEE Administration Haloperidol 5 mg 09/30/24 10:19 10/05/24 22:09 Haloperidol 5 Mg Tablet PO 5 mg Q4H PRN Administration AGITATION Hydroxyzine Pamoate 50 mg 09/30/24 10:19 10/05/24 20:47 Hydroxyzine 25 Mg Capsule PO 50 mg Q6H PRN Administration ANXIETY Latanoprost 1 drop 09/30/24 14:00 10/06/24 09:31 Latanoprost 0.005% Op Soln 2.5 Ml Btl EYE-BOTH 1 drop DAILY MEE Administration Losartan Potassium 50 mg 09/30/24 13:00 10/06/24 09:29 Losartan 50 Mg Tablet PO 50 mg DAILY MEE Administration Meloxicam 15 mg 09/30/24 14:00 10/06/24 09:29 Meloxicam 7.5 Mg Tablet PO 15 mg DAILY MEE Administration Metformin HCl 500 mg 09/30/24 13:00 10/06/24 09:29 Metformin 500 Mg Tablet PO 500 mg DAILY MEE Administration Multi-Ingredient Ointment 1 applic 10/04/24 16:49 10/06/24 09:30 Eucerin Cream 113 Gm Jar TOPICAL 1 applic PRN PRN Administration DRYNESS Nicotine 1 patch 09/30/24 10:19 10/06/24 09:31 Nicotine 21 Mg Patch TRANSDERMA 1 patch DAILY PRN Administration NICOTINE WITHDRAWAL Non-Formulary 2 each 10/02/24 15:05 10/04/24 16:18 Medication ( INHALATION 2 each Albuterol Hfa) Q6H PRN Administration SHORTNESS OF BREATH Olanzapine 5 mg 09/30/24 10:19 10/05/24 17:19 Olanzapine 5 Mg Odt PO 5 mg Q4H PRN Administration Agitation/Psychosis Paliperidone 3 mg 10/05/24 09:00 10/06/24 09:30 Paliperidone Er 3 Mg Tablet PO 3 mg DAILY MEE Administration Pantoprazole Sodium 40 mg 09/30/24 18:00 10/06/24 09:[address] 40 Mg Tablet PO 40 mg BID MEE Administration Polyethylene Glycol 17 gm 10/02/24 09:00 12/08/24 09:30 Polyethylene Glycol 3350 Pkt 17 Gm PO Not Given DAILY MEE Risperidone 1 mg 10/05/24 18:00 10/05/24 17:19 Risperidone 2 Mg Tablet PO 10/11/24 18:01 1 mg QPM MEE Administration Timolol Maleate 1 drop 09/30/24 18:00 10/06/24 09:31 Timolol 0.5% Op Soln 5 Ml Btl EYE-BOTH 1 drop BID MEE Administration Trazodone HCl 100 mg 09/30/24 21:00 10/06/24 09:31 Trazodone 100 Mg Tablet PO Not Given 0900,2100 [facility] PFSH Acute PFSH: Medical History Hx of colonic polyps she says she is due for colonoscopy--last one [place] 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, due to meth Chronic back pain greater than 3 months duration Hormone replacement therapy (HRT) Nicotine dependence, cigarettes, in remission Hyperlipidemia GERD without esophagitis Anxiety Hx of hepatitis C cured; reports she has had hep a an b vax Overactive bladder Diabetic retinopathy associated with controlled type 2 diabetes mellitus Eczema Controlled type 2 diabetes mellitus, without long-term current use of insulin Glaucoma (~2017) History of CVA (cerebrovascular accident) in her 40s; no residual deficits Bipolar 1 disorder Hypertension Surgical History History of glaucoma tube shunt procedure Hx of cataract removal with insertion of prosthetic lens OU History of reconstructive repair of rectocele and pelvic floor reconstruction History of back surgery age 59; lumbar fusion History of foot surgery Removal of tumor from right foot. In her 30s. Hx of cholecystectomy Laparoscopic. In her 30s. Hx of appendectomy (~1987) Age 28. Hx of sinus surgery Sinus surgery with septoplasty. In her 30s Hx of tubal ligation (~1985) Age 26. History of tonsillectomy and adenoidectomy (~1978) Age 19 Hx of hysterectomy (~1990) ANABELLE/BSO due to endometriosis. Age 31. History of total right knee replacement (~2015) History of bladder repair surgery (~2014) Prolapse surgery by Dr. Melendez in [place]. Family History Father Diabetes Hypertension Mother Myocardial infarction Hypertension CAD (coronary artery disease) Renal cancer Grandmother Stroke maternal Social History Smoking and tobacco/nicotine status: former use of tobacco/nicotine Quit status (tobacco/nicotine): has quit using Year quit tobacco: 2021 Former quit date comment: 0.5 ppd from age 30 to 62 Second hand smoke exposure: No Alcohol intake: never Substance/Drug Use: former Date of last use: 1998 -marijuana and methamphetamine Former substance use details: did IV drugs--quit age 40; hx of hep c--cured Lives independently: Yes Household members: children Marital status: / Number of children: 3 Highest education level completed: Some College, No Degree Current occupational status: disabled Current occupation: RN; worked as labor and delivery nurse Current gender identity: Female Special irineo needs: No Agree to transfusion: Yes Female Reproductive History: Date of last menstrual period: 10/30/90 Vitals/I&O/Wt Last Vital Signs Temp 98.2 F 10/06/24 06:00 Pulse 103 H 10/06/24 06:00 Resp 16 10/06/24 06:00 BP 120/89 10/06/24 09:29 Pulse Ox 98 10/06/24 06:00 O2 Del Method Room Air 10/05/24 11:12 Weight last 48 hrs Weight 82.1 kg Physical Exam Narrative: Normal S1-S2 Abdomen soft nontender No edema bilateral lower extremities Lungs clear to auscultation bilaterally with mild diffuse wheezing. No gross rhonchi appreciated. No acute distress sitting up in chair in cafeteria. Left hand middle finger tiny puncture wound by periphery with mild swelling noted. Artificial nails present. Data 09/30/24 09:16 09/30/24 09:16 A&P Assessment and plan (1) Paronychia: (2) Asthma exacerbation: Plan #Mild paronychia left hand middle fingertip #mild asthma exacerbation, rule out pneumonia ? Continue on DuoNeb every 6 hours as needed ? Check procalcitonin, chest x-ray ? Check baseline labs CBC BMP ? Placed on prednisone 40 mg x 5 days ? Placed on doxycycline 100 twice daily ? Placed on cefdinir 300 twice daily ? Patient should be placed on fluticasone inhaler twice daily at time of discharge. ? She has to follow-up with primary care doctor after discharge. ? Patient is not hypoxic and is on room air. #Acute psychosis #Anxiety #Bipolar disorder ? Continue management as per psychiatry. Consult Attestations Medical Necessity Statement: Defer to primary team. Diagnoses Paronychia Asthma exacerbation J45.901
[2024-10-06 14:00] VITALS: BP 128/85; PULSE 102; RESP 17; TEMP 36.7; O2SAT 96
[2024-10-06] MEDS: predniSONE 20 mg Tablet 40 MG PO (14:23)
[2024-10-06] MEDS: acetaminophen 325 mg Tablet 650 MG PO ×2 (15:19→20:54)
[2024-10-06] MEDS: blistex lip oint 7 gm Tube 1 APPLIC TOPICAL (15:19)
[2024-10-06] MEDS: hyDROXYzine 25 mg Capsule 50 MG PO (15:20)
[2024-10-06] MEDS: doxycycline 100 mg Tablet PO (18:02)
[2024-10-06] MEDS: cefdinir 300 MG CAPSULE PO (18:02)
[2024-10-06] MEDS: risperiDONE 2 mg Tablet 1 MG PO (18:02)
[2024-10-06 18:21] LABS: Basophils # 0.1 10^3/uL (0.0-0.1); Basophils % 0.5 %; Eosinophils # 0.3 10^3/uL (0.0-0.8); Eosinophils % 2.9 %; Hematocrit 38.9 % (36-47); Lymphocytes # 1.5 10^3/uL (0.8-4.8); Lymphocytes % 15.5 %; Mean Corpuscular HGB Conc 32.9 g/dL (30-55); Mean Corpuscular Hemoglobin 29.7 pg (27-33); Mean Corpuscular Volume 90.3 fl (85-98); Mean Platelet Volume 11.2 fL (7.4-10.4); Monocytes # 0.6 10^3/uL (0.2-0.9); Monocytes % 6.3 %; Neutrophils # 7.11 10^3/uL (1.8-7.7); Neutrophils % 74.6 %; Nucleated Red Blood Cells % 0 %; Platelet Count 197 10^3/cmm (157-399); Red Blood Count 4.31 10^6/uL (3.85-5.65); Red Cell Distribution Width 12.7 % (12.1-15.1); White Blood Count 9.54 10^3/uL (3.29-11.43)
[2024-10-06 18:38] LABS: Anion Gap 16.7 (5-19); Blood Urea Nitrogen 16 mg/dL (8-23); Carbon Dioxide 24 mmol/L (22-29); Chloride 99 mmol/L (98-107); Creatinine Clr Calc Pharmacy 115.3469; Glomerular Filtration Rate 124.2 mL/min (90-130); Glucose 143 mg/dL (65-115); Osmolality Calculated 284 mOsm/kg (285-295); Potassium 4.7 mmol/L (3.5-5.1); Sodium 135 mmol/L (136-145)
[2024-10-06 18:46] LABS: Procalcitonin 0.03 ng/mL (0-0.5)
[2024-10-06] MEDS: trazodone 100 mg Tablet PO (20:55)
[2024-10-06] MEDS: OLANZapine 5 mg ODT PO (20:55)
[2024-10-06] MEDS: atorvastatin 40 mg Tablet 20 MG PO (20:55)
[2024-10-06 21:43] VITALS: BP 112/66; PULSE 99; RESP 16; TEMP 37.1; O2SAT 96
[2024-10-07 06:00] VITALS: BP 130/66; PULSE 103; RESP 16; TEMP 36.7; O2SAT 96
[2024-10-07] MEDS: acetaminophen 325 mg Tablet 650 MG PO ×4 (06:23→20:55)
[2024-10-07] MEDS: estradiol 1 mg Tablet PO (08:23)
[2024-10-07] MEDS: cefdinir 300 MG CAPSULE PO ×2 (08:23→17:32)
[2024-10-07] MEDS: paliperidone ER 3 mg Tablet 6 MG PO (08:23)
[2024-10-07] MEDS: doxycycline 100 mg Tablet PO ×2 (08:23→17:18)
[2024-10-07] MEDS: predniSONE 20 mg Tablet 40 MG PO (08:23)
[2024-10-07 08:24] VITALS: BP 130/66
[2024-10-07] MEDS: guaiFENesin 600 mg Tablet PO (08:24)
[2024-10-07] MEDS: metformin 500 mg Tablet PO (08:24)
[2024-10-07] MEDS: losartan 50 mg Tablet PO (08:24)
[2024-10-07] MEDS: meloxicam 7.5 mg tablet 15 MG PO (08:24)
[2024-10-07] MEDS: trazodone 100 mg Tablet PO ×2 (08:24→20:54)
[2024-10-07] MEDS: pantoprazole DR 40 mg Tablet PO ×2 (08:24→17:18)
[2024-10-07] MEDS: docusate sodium 100 mg Capsule PO ×2 (08:24→17:18)
[2024-10-07] MEDS: timolol 0.5% Op Soln 5 mL Btl 1 DROP EYE-BOTH ×2 (08:25→17:17)
[2024-10-07] MEDS: latanoprost 0.005% Op Soln 2.5 mL Btl 1 DROP EYE-BOTH (08:25)
[2024-10-07] MEDS: diclofenac 1% Topical Gel 100 gm 1 APPLIC TOPICAL ×2 (08:25→11:56)
[2024-10-07] MEDS: hyDROXYzine 25 mg Capsule 50 MG PO ×2 (13:13→20:54)
[2024-10-07 14:00] VITALS: BP 134/65; PULSE 110; RESP 16; TEMP 36.6; O2SAT 96
--- NOTE | 2024-10-07 16:06 | W.PM.NPUPNS ---
Subjective NPU Subjective: Patient presented today reporting that she is doing fine. He was very animated about the hearing tomorrow and how she has a charge authorizer that is very on top of things and reported he was going to file a Habeas corpus if nothing else. We discussed the fact that she is here based directly on [place] law and likely secondary to her cannabis use superimposed on her bipolar disorder. We discussed however that we would speak with her son who had been a significant part of her coming here but she reports now is feeling that she is back to baseline. We agreed that if he felt she was in a condition to return home where he lives with her that we would consider the possibility of discharge tomorrow. She denied any side effects to the medication. Mental Status Exam MSE Comments: This is an obese older white female in hospital scrubs looking older than her stated age with adequate grooming and limited eye contact. No abnormal movements except for mild psychomotor agitation. Cooperative with exam in mild distress. Speech was slightly increased rate and volume and somewhat pressured. Mood described as better, affect congruent and less energetic and anxious. Thought process linear. Thought content: Patient denied suicidal or homicidal ideation, there were no delusions reported noted, she denied any auditory or visual hallucinations. No current thoughts to hurt or kill self or others. Significant anxiety related to congregation activities, financial concerns, and recent stressors. Long history of depression, currently experiencing mood instability, alternating between manic and depressive states. Reports severe insomnia, sleeping only 1.5 to 4 hours per night. Recent stressors include the of a dog, financial concerns, and congregation-related stress. Attention and concentration were intact and memory appeared somewhat reliable but none were formally tested. She is alert and oriented x3. Insight and judgment limited impulse control limited versus impaired. Vitals/I&O/Wt Last Vital Signs Temp 98 F 10/07/24 14:00 Pulse 110 H 10/07/24 14:00 Resp 16 10/07/24 14:00 BP 134/65 10/07/24 14:00 Pulse Ox 96 10/07/24 14:00 O2 Del Method Room Air 10/07/24 14:00 Weight last 48 hrs Weight 82.1 kg Data NPU 10/06/24 17:56 10/06/24 17:56 Micro: Microbiology 10/06/24 18:00 Gram Stain - Final Sputum - Expectorated Sputum Sputum Culture - Preliminary Microbiology 10/06/24 18:00 Sputum - Expectorated Sputum Gram Stain - Final 10/06/24 18:00 Sputum - Expectorated Sputum Sputum Culture - Preliminary A&P Assessment and plan (1) Acute psychosis: (2) Anxiety: (3) Bipolar 1 disorder: Plan This is a 64-year-old white female known from previous outpatient services that were limited in nature. The patient presents with a history of bipolar disorder, which was diagnosed in their early 40s, following a period of substance use and depression. The patient reports recent exacerbations of mood instability, characterized by alternating periods of gordo and depressive symptoms, including insomnia and significant mood swings. The patient has a complex psychiatric history with multiple hospital admissions for psychiatric reasons, the most recent being five years ago. The patient is currently on a regimen of Klonopin, trazodone, and risperidone, with recent adjustments in dosages. There is a noted concern regarding the use of Klonopin, particularly given the patient's age and the associated risk of falls. The patient also reports a history of substance use, including methamphetamine and opiates, but has been in recovery for 24 years. The patient denies any current suicidal ideation or self-injurious behavior. There is a family history of mental health issues on both sides, but no known history of addiction or suicide. The patient expresses significant anxiety related to personal and financial stressors, as well as a recent bereavement of a pet. Overall, the patient's presentation is consistent with a diagnosis of bipolar disorder with recent mood destabilization, requiring further psychiatric evaluation and management. 1. Continue current medication. We will evaluate medication and look for possible placement for changing improvement. Concerns about regular use of Klonopin exist at her age. She reports she is getting sleep and we discussed needing to decrease her Klonopin and likely discontinue marijuana use. Will decrease Risperdal to 1 mg p.o. q. evening for 7 days then discontinue and started Invega 3 mg daily. Increase Invega to 6 mg. 2. Continue every 15 minute checks for safety 3. Encourage individual, group and milieu therapy. 4. Encourage sober living treatment after discharge at the highest level care to which she is willing to commit. 5. Discussed possibility of discharge at the beginning of the week but we filed for 21-day hold. 6. Appreciate hospitalist consult for multiple somatic concerns. They identified some issues with her breathing that were amenable to antibiotics and we will continue to follow recommendations as indicated. 7. Patient reports that her son who had been part of the process that got her here feels she is doing much better. Will attempt to have a conversation with him to determine whether he can consider discharge versus going to the 21-day hold hearing. Involuntary Hold Information 96 Hour Hold: 96 Hour Involuntary Admission: Yes Attestations NPU Medical Necessity Statement*: Inpatient hospitalization is medically necessary and the clinically appropriate intervention at this time. We will monitor/initiate medications and make changes as indicated. Likely length of stay 1-3 days. Coding Level of Care Code Acute Code for [facility] Diagnoses Acute psychosis F23 Anxiety F41.9 Bipolar 1 disorder F31.9
[2024-10-07] MEDS: nicotine 21 mg Patch 1 PATCH TRANSDERMA (16:22)
[2024-10-07] MEDS: risperiDONE 2 mg Tablet 1 MG PO (17:18)
--- NOTE | 2024-10-07 20:45 | PC.NURSE ---
this nurse tech documented under Jessica Allen for 1900 rounding. charge nurse and warehouse shipping supervisor notified.
[2024-10-07] MEDS: atorvastatin 40 mg Tablet 20 MG PO (20:55)
[2024-10-07 22:00] VITALS: BP 123/72; PULSE 99; RESP 16; TEMP 36.9; O2SAT 97
[2024-10-08] MEDS: OLANZapine 5 mg ODT PO (00:21)
[2024-10-08 06:00] VITALS: BP 146/85; PULSE 117; RESP 17; O2SAT 97
[2024-10-08] MEDS: hyDROXYzine 25 mg Capsule 50 MG PO (06:15)
[2024-10-08] MEDS: acetaminophen 325 mg Tablet 650 MG PO (06:16)
[2024-10-08] MEDS: predniSONE 20 mg Tablet 40 MG PO (09:02)
[2024-10-08] MEDS: guaiFENesin 600 mg Tablet PO (09:03)
[2024-10-08] MEDS: estradiol 1 mg Tablet PO (09:03)
[2024-10-08] MEDS: metformin 500 mg Tablet PO (09:03)
[2024-10-08] MEDS: paliperidone ER 3 mg Tablet 6 MG PO (09:03)
[2024-10-08] MEDS: pantoprazole DR 40 mg Tablet PO (09:04)
[2024-10-08] MEDS: meloxicam 7.5 mg tablet 15 MG PO (09:04)
[2024-10-08] MEDS: losartan 50 mg Tablet PO (09:04)
[2024-10-08] MEDS: cefdinir 300 MG CAPSULE PO (09:04)
[2024-10-08] MEDS: doxycycline 100 mg Tablet PO (09:04)
[2024-10-08] MEDS: diclofenac 1% Topical Gel 100 gm 1 APPLIC TOPICAL (09:08)
[2024-10-08] MEDS: docusate sodium 100 mg Capsule PO (09:08)
[2024-10-08] MEDS: latanoprost 0.005% Op Soln 2.5 mL Btl 1 DROP EYE-BOTH (09:08)
[2024-10-08] MEDS: trazodone 100 mg Tablet PO (09:09)
[2024-10-08] MEDS: timolol 0.5% Op Soln 5 mL Btl 1 DROP EYE-BOTH (09:09)
--- NOTE | 2024-10-08 11:35 | DCPLANNER ---
IMM completed 10/08/2024 @ 1132 and pt was given a copy of her rights.
[2024-10-08 12:07] VITALS: BP 146/85; PULSE 117; RESP 17; TEMP 36.9; O2SAT 97
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
== END 2024-10-08 15:33 | disposition home or self-care (01) | DRG 885 ==
LOC: ER 09:47 → NP 09:55
PROVIDERS: Internal Medicine; Admitting Provider Psychiatry & Neurology Psychiatry; Emergency Provider Physician Assistant; PCP Family Medicine; Visit Provider Psychiatry & Neurology Psychiatry
DX: F23 Brief psychotic disorder (principal); J45.21 Mild intermittent asthma with (acute) exacerbation; F31.9 Bipolar disorder, unspecified; G47.00 Insomnia, unspecified; F15.11 Other stimulant abuse, in remission; Z87.891 Personal history of nicotine dependence; F10.91 Alcohol use, unspecified, in remission; Z90.710 Acquired absence of both cervix and uterus; Z79.890 Hormone replacement therapy; I10 Essential (primary) hypertension; Z81.8 Family history of other mental and behavioral disorders; Z83.3 Family history of diabetes mellitus; Z84.89 Family history of other specified conditions; Z82.49 Family history of ischemic heart disease and other diseases of the circulatory system; Z80.51 Family history of malignant neoplasm of kidney; Z82.3 Family history of stroke; F41.9 Anxiety disorder, unspecified; Z79.84 Long term (current) use of oral hypoglycemic drugs; Z79.891 Long term (current) use of opiate analgesic; Z88.1 Allergy status to other antibiotic agents; Z86.0100 Personal history of colon polyps, unspecified; E78.5 Hyperlipidemia, unspecified; K21.9 Gastro-esophageal reflux disease without esophagitis; Z86.19 Personal history of other infectious and parasitic diseases; E11.319 Type 2 diabetes mellitus with unspecified diabetic retinopathy without macular edema; L03.012 Cellulitis of left finger
CPT/HCPCS: 36415; 71045; 80048; 80053; 80306; 80307; 82274; 84145; 85025; 87070; 87205; 90471; 90686; 94640; 97110; 97150; 97161; 97165; 99285; J7512; J7613; J8499

== ENCOUNTER → 2024-11-07 11:08 | Outpatient (BNVA) | payer MEDICARE, SELFPAY | PROVIDERS: PCP Family Medicine; Visit Provider Physician Assistant | DX: M25.562 Pain in left knee (principal); M17.12 Unilateral primary osteoarthritis, left knee | CPT/HCPCS: 20610; 73560; 73565; 99203; J3301 ==

== ENCOUNTER → 2024-11-11 07:48 | Outpatient (BNVA) | payer MEDICARE, SELFPAY | PROVIDERS: PCP Family Medicine; Visit Provider Surgery | DX: R03.0 Elevated blood-pressure reading, without diagnosis of hypertension (principal); K21.9 Gastro-esophageal reflux disease without esophagitis; Z86.0100 Personal history of colon polyps, unspecified; R10.9 Unspecified abdominal pain; K92.2 Gastrointestinal hemorrhage, unspecified; R11.0 Nausea | CPT/HCPCS: 99204 ==

== ENCOUNTER → 2024-11-19 15:30 | Outpatient (BNVA) | payer MEDICARE, SELFPAY | PROVIDERS: PCP Family Medicine; Visit Provider Nurse Practitioner Family | DX: Z12.4 Encounter for screening for malignant neoplasm of cervix (principal) | CPT/HCPCS: 87624 ==

== ENCOUNTER 2024-11-27 05:36 | Day surgery (SDC) | payer MEDICARE, SELFPAY ==
[2024-11-27 06:04] VITALS: BP 150/87; PULSE 92; RESP 18; TEMP 36.5; O2SAT 95; BMI 31.8
[2024-11-27] MEDS: sodium chloride 0.9% 500 ML 15 ML IV (06:08)
[2024-11-27 06:11] LABS: Glucose Point of Care 100 mg/dL (70-110)
--- NOTE | 2024-11-27 06:50 | P.ANESASSM_ITS ---
Pre-Anesthetic Assessment Height/Weight: Height 1.6 m Weight 81.647 kg Temp Pulse Resp BP Pulse Ox O2 Del Method 97.7 F 92 18 150/87 95 Room Air 11/27/24 06:04 11/27/24 06:04 11/27/24 06:04 11/27/24 06:04 11/27/24 06:04 11/27/24 06:04 Preop Diagnosis: screening, gerd Operation Date: 11/27/24 07:00 Proposed Procedures p EGD 56288, 31960, G0105, K92.1(Not Applicable) - Loki Martini DO s Colonoscopy(Not Applicable) - Loki Martini DO Familial anesthetic complications: none Was Beta Adriana taken within 24 hours: N/A Was Clonidine taken within 24 hours: N/A Last intake: Intake Last Liquid Date 11/26/24 Last Liquid Time 23:59 Last Solid Date 11/25/24 Last Solid Time 23:59 Social Tobacco and No alcohol Exam alert, oriented x 3 and clear to auscultation bilaterally Airway Mallampati: Class I Dentition: false History/ROS No significant history except as noted Pulmonary Chronic Obstructive Pulmonary Disease uses inhaler daily, used this morning and feels like breathing is at baseline CV/HEM Hypertension None reported Hepatic hx Hep c GI Gastroesophageal Reflux Disease Metabolic Diabetes Mellitus [facility] [place] None reported Neuropsych Bipolar and Cerebrovascular Accident (hx CVA no residuals ) Anesthetic Plan ASA status: 3 Anesthesia: Anesthesia Evaluation and MAC Risk of > 500 ml blood loss (7ml/kg in children): No Medications/Allergies Home Medications Medication Instructions Recorded Confirmed Last Taken Type losartan 50 mg tablet 50 mg PO DAILY 12/16/19 11/25/24 11/26/24 History meloxicam 15 mg tablet 15 mg PO DAILY 08/09/22 11/25/24 11/26/24 History estradiol 1 mg tablet 1 mg PO DAILY #90 tabs 07/23/24 11/25/24 11/26/24 Rx famotidine 40 mg tablet (Pepcid) 40 mg PO DAILY 07/23/24 11/25/24 11/26/24 History metformin 500 mg tablet 500 mg PO DAILY #90 tabs 07/23/24 11/25/24 11/26/24 Rx trospium 20 mg tablet 20 mg PO BID #180 tabs 07/23/24 11/25/24 11/25/24 Rx omeprazole 40 mg capsule,delayed 40 mg PO BID #180 caps 09/19/24 11/25/24 11/26/24 Rx release acetaminophen 325 mg tablet 325 mg PO QID PRN Pain 09/23/24 11/25/24 11/26/24 23:55 History (Tylenol) Metamucil Fiber Gummies 2 gummy PO BID 09/30/24 11/25/24 11/26/24 History acetaminophen 500 mg tablet 1,000 mg PO Q6H PRN Pain 09/30/24 11/25/24 11/26/24 History (Tylenol Extra Strength) albuterol sulfate 90 mcg/actuation 2 puff inhalation Q6H PRN 09/30/24 11/25/24 Unknown History aerosol inhaler Shortness Of Breath biotin 5 mg tablet 5 mg PO DAILY 09/30/24 11/25/24 11/26/24 History latanoprost 0.005 % eye drops 1 drp ophthalmic (eye) DAILY 09/30/24 11/25/24 11/26/24 History multivitamin 1 tab PO DAILY 09/30/24 11/25/24 11/26/24 History timolol maleate 0.5 % eye drops 1 drp ophthalmic (eye) BID 09/30/24 11/25/24 11/26/24 History trazodone 100 mg tablet 100 mg PO BID 09/30/24 11/25/24 11/25/24 History docusate sodium 100 mg capsule 100 mg PO BID 30 days #60 caps 10/08/24 11/25/24 11/26/24 Rx polyethylene glycol 3350 17 gram 17 g PO DAILY 30 days #510 ea 10/08/24 11/25/24 11/26/24 Rx oral powder packet nystatin 100,000 unit/gram topical 1 applic topical BID 7 days #30 10/11/24 11/25/24 11/25/24 Rx ointment grams triamcinolone acetonide 0.1 % 1 applic topical BID rash #30 grams 10/18/24 11/25/24 11/25/24 Rx topical cream pantoprazole 40 mg tablet,delayed 40 mg PO BID 6 weeks #84 tabs 11/11/24 11/25/24 11/26/24 Rx release (Protonix) ondansetron 8 mg disintegrating 8 mg PO Q8H PRN nausea and 11/19/24 11/25/24 11/26/24 23:55 Rx tablet vomiting #30 tabs atorvastatin 40 mg tablet 20 mg (1/2 x 40 mg) PO BEDTIME 30 11/20/24 11/25/24 11/26/24 Rx days #15 tabs fexofenadine 180 mg tablet 180 mg PO DAILY #30 tabs 11/20/24 11/25/24 11/26/24 Rx guaifenesin 600 mg tablet, 600 mg PO QAM #30 tabs 11/20/24 11/25/24 11/26/24 Rx extended release 12 hr (Mucinex) omega 1-kvw-hxe-fish oil 1,000 mg 1 cap PO BID #60 caps 11/20/24 11/25/24 11/26/24 Rx (120 mg-180 mg) capsule (Fish Oil) sennosides 8.6 mg-docusate sodium 1 tab-cap PO DAILY #30 tabs 11/20/24 11/25/24 11/26/24 Rx 50 mg tablet (Senna Plus) paliperidone 3 mg tablet,extended 6 mg (2 x 3 mg) PO DAILY 30 days 11/22/24 11/25/24 11/26/24 Rx release 24 hr #60 tabs sacral dressing #20 ea 11/25/24 11/25/24 Unknown Rx tramadol 50 mg tablet 50 mg PO Q6H PRN pain 5 days #20 11/26/24 11/27/24 Unknown Rx tabs Allergies Allergy/AdvReac Type Severity Reaction Status Date / Time ciprofloxacin [From Cipro] Allergy Severe ALGY-Anaphy Verified 11/11/24 07:55 laxis divalproex sodium Allergy Unknown Unknown Verified 11/11/24 07:55 [From Depakote] donepezil [From Aricept] Allergy ADR-Nausea Verified 11/11/24 07:55 fluoxetine [From Prozac] Allergy Unknown Verified 11/11/24 07:55 fluticasone Allergy ADR-Gastrointestinal Verified 11/11/24 07:55 [From Advair Diskus] Upset lamotrigine [From Lamictal] Allergy ADR-Nausea Verified 11/11/24 07:55 phentermine Allergy Unknown Verified 11/11/24 07:55 quetiapine [From Seroquel] Allergy ADR-Gastrointestinal Verified 11/11/24 07:55 Upset salmeterol Allergy ADR-Gastrointestinal Verified 11/11/24 07:55 [From Advair Diskus] Upset tamsulosin Allergy ALGY-Rash Verified 11/11/24 07:55 thiethylperazine Allergy ADR-Shakine Verified 11/11/24 07:55 [From Torecan] ss varenicline [From Chantix] Allergy ADR-Gastrointestinal Verified 11/11/24 07:55 Upset zonisamide [From Zonegran] Allergy ADV-Weaknes Verified 11/11/24 07:55 s Current Medications Generic Name Dose Route Start Last Admin Trade Name Freq PRN Reason Stop Dose Admin Sodium Chloride 500 mls @ 15 mls/hr 11/27/24 05:42 11/27/24 06:08 Sodium Chloride 0.9% IV 11/28/24 05:41 15 mls/hr .Q24H PRN Administration COLONOSCOPY FLUIDS PFSH Anesthesia Medical History Psychiatric care Hx of colonic polyps she says she is due for colonoscopy--last one [place] 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, due to meth Chronic back pain greater than 3 months duration Hormone replacement therapy (HRT) Nicotine dependence, cigarettes, in remission Hyperlipidemia GERD without esophagitis Anxiety Hx of hepatitis C cured; reports she has had hep a an b vax Overactive bladder Diabetic retinopathy associated with controlled type 2 diabetes mellitus Eczema Controlled type 2 diabetes mellitus, without long-term current use of insulin Glaucoma (~2017) History of CVA (cerebrovascular accident) in her 40s; no residual deficits Bipolar 1 disorder Hypertension Surgical History History of glaucoma tube shunt procedure Hx of cataract removal with insertion of prosthetic lens OU History of reconstructive repair of rectocele and pelvic floor reconstruction History of back surgery age 59; lumbar fusion History of foot surgery Removal of tumor from right foot. In her 30s. Hx of cholecystectomy Laparoscopic. In her 30s. Hx of appendectomy (~1987) Age 28. Hx of sinus surgery Sinus surgery with septoplasty. In her 30s Hx of tubal ligation (~1985) Age 26. History of tonsillectomy and adenoidectomy (~1978) Age 19 Hx of hysterectomy (~1990) ANABELLE/BSO due to endometriosis. Age 31. History of total right knee replacement (~2015) History of bladder repair surgery (~2014) Prolapse surgery by Dr. Melendez in [place]. Family History Father Diabetes Hypertension Mother Myocardial infarction Hypertension CAD (coronary artery disease) Renal cancer Grandmother Stroke maternal Social History Smoking and tobacco/nicotine status: never used tobacco/nicotine Quit status (tobacco/nicotine): has quit using Year quit tobacco: 2021 Former quit date comment: 0.5 ppd from age 30 to 62 Second hand smoke exposure: No Alcohol intake: never Substance/Drug Use: former Date of last use: 1998 -marijuana and methamphetamine Former substance use details: did IV drugs--quit age 40; hx of hep c--cured Lives independently: Yes Household members: children Marital status: / Number of children: 3 Highest education level completed: Some College, No Degree Current occupational status: disabled Current occupation: RN; worked as labor and delivery nurse Current gender identity: Female Special irineo needs: No Agree to transfusion: Yes Data Anesthesia Cardiac Studies: No Data to Display
--- NOTE | 2024-11-27 07:01 | W.PM.OPSUD ---
Surgery/Procedure H&P Update DATE OF PROCEDURE: November 27, 2024 DATE H&P PERFORMED: 11/11/24 H&P UPDATE INFORMATION: I have reviewed H&P completed within last 30 days, I have examined patient prior to procedure and No changes to prior documentation PLANNED PROCEDURE: Operation Date: 11/27/24 07:00 Proposed Procedures p EGD 65894, 40310, G0105, K92.1(Not Applicable) - DO jayda Barton Colonoscopy(Not Applicable) - Loki Martini DO
[2024-11-27 07:32] VITALS: BP 120/78; PULSE 82; RESP 14; TEMP 36.1; O2SAT 98
[2024-11-27 07:48] VITALS: BP 130/80; PULSE 83; RESP 18; O2SAT 96
--- NOTE | 2024-11-27 09:00 | ANE.PACU2 ---
Inpatient post-anesthesia follow up: Airway intact: Yes Vital signs: Temperature 97.0 F Pulse Rate 83 Respiratory Rate 18 Blood Pressure 130/80 Pulse Oximetry 96 Oxygen Delivery Me thod Room Air Oxygen Flow Rate Fraction of Inspir ed Oxygen Hydration adequate: Yes Nausea and vomiting: No Pain level: 1 Mental status: Baseline
== END 2024-11-27 07:58 | disposition home or self-care (01) ==
PROVIDERS: PCP Family Medicine; Visit Provider Surgery
PROC: 0DJ08ZZ Inspection of Upper Intestinal Tract, Via Natural or Artificial Opening Endoscopic (ICD-10-PCS; principal; 2024-11-27 07:00)
PROC: 0DJD8ZZ Inspection of Lower Intestinal Tract, Via Natural or Artificial Opening Endoscopic (ICD-10-PCS; CPT 45378; 2024-11-27 07:00)
DX: Z12.11 Encounter for screening for malignant neoplasm of colon (principal); K63.5 Polyp of colon; J44.9 Chronic obstructive pulmonary disease, unspecified; K21.9 Gastro-esophageal reflux disease without esophagitis; I10 Essential (primary) hypertension; E78.5 Hyperlipidemia, unspecified; Z86.19 Personal history of other infectious and parasitic diseases; Z86.73 Personal history of transient ischemic attack (TIA), and cerebral infarction without residual deficits; Z79.899 Other long term (current) drug therapy; Z88.8 Allergy status to other drugs, medicaments and biological substances; Z90.49 Acquired absence of other specified parts of digestive tract; Z87.891 Personal history of nicotine dependence; K59.00 Constipation, unspecified; F31.9 Bipolar disorder, unspecified; E11.319 Type 2 diabetes mellitus with unspecified diabetic retinopathy without macular edema
CPT/HCPCS: 36416; 43239; 45385; 82962; 88305; J2704; J3490; J7040

== ENCOUNTER → 2024-12-03 13:00 | Outpatient (BNVA) | payer MEDICARE, SELFPAY | PROVIDERS: Visit Provider Thoracic Surgery (Cardiothoracic Vascular Surgery) | DX: I96 Gangrene, not elsewhere classified (principal); L89.313 Pressure ulcer of right buttock, stage 3 | CPT/HCPCS: 97597; 99213; A6210 ==

== ENCOUNTER → 2024-12-09 09:45 | Outpatient (BNVA) | payer MEDICARE, SELFPAY | PROVIDERS: Visit Provider Surgery | DX: Z09 Encounter for follow-up examination after completed treatment for conditions other than malignant neoplasm (principal); K21.9 Gastro-esophageal reflux disease without esophagitis; K63.5 Polyp of colon | CPT/HCPCS: 99214 ==

== ENCOUNTER → 2024-12-10 13:34 | Outpatient (BNVA) | payer MEDICARE, SELFPAY | PROVIDERS: Visit Provider Thoracic Surgery (Cardiothoracic Vascular Surgery) | DX: I96 Gangrene, not elsewhere classified (principal); L89.313 Pressure ulcer of right buttock, stage 3 | CPT/HCPCS: 97597; A6210 ==

== ENCOUNTER 2024-12-11 06:00 | Outpatient (RCR) | payer MEDICARE, SELFPAY | END 2024-12-27 23:59 | disposition home or self-care (01) | LOC: TPT 06:00 | PROVIDERS: Visit Provider Physician Assistant | DX: M17.12 Unilateral primary osteoarthritis, left knee (principal); M25.562 Pain in left knee | CPT/HCPCS: 97110; 97162 ==

== ENCOUNTER → 2024-12-25 13:40 | Outpatient (BNVA) | payer MEDICARE, SELFPAY | PROVIDERS: Visit Provider Thoracic Surgery (Cardiothoracic Vascular Surgery) | DX: I96 Gangrene, not elsewhere classified (principal); L89.313 Pressure ulcer of right buttock, stage 3 | CPT/HCPCS: 97597; A6210 ==

== ENCOUNTER 2024-12-28 06:00 | Outpatient (RCR) | payer MEDICARE, SELFPAY | END 2025-01-27 23:59 | disposition home or self-care (01) | LOC: TPT 06:00 | PROVIDERS: Visit Provider Physician Assistant | DX: M17.12 Unilateral primary osteoarthritis, left knee (principal); M25.562 Pain in left knee | CPT/HCPCS: 97110 ==

== ENCOUNTER → 2025-01-01 10:33 | Outpatient (BNVA) | payer MEDICARE, SELFPAY | PROVIDERS: Visit Provider Thoracic Surgery (Cardiothoracic Vascular Surgery) | DX: I96 Gangrene, not elsewhere classified (principal); L89.313 Pressure ulcer of right buttock, stage 3; Z09 Encounter for follow-up examination after completed treatment for conditions other than malignant neoplasm | CPT/HCPCS: 97597; A6021 ==

== ENCOUNTER → 2025-01-08 10:40 | Outpatient (BNVA) | payer MEDICARE, SELFPAY | PROVIDERS: Visit Provider Thoracic Surgery (Cardiothoracic Vascular Surgery) | DX: I96 Gangrene, not elsewhere classified (principal); L89.313 Pressure ulcer of right buttock, stage 3 | CPT/HCPCS: 97597; A6021 ==

== ENCOUNTER → 2025-01-15 09:45 | Outpatient (BNVA) | payer MEDICARE, SELFPAY | PROVIDERS: Visit Provider Thoracic Surgery (Cardiothoracic Vascular Surgery) | DX: I96 Gangrene, not elsewhere classified (principal); L89.313 Pressure ulcer of right buttock, stage 3 | CPT/HCPCS: 97597; A6021; A6212 ==

== ENCOUNTER 2025-01-28 05:00 | Outpatient (RCR) | payer MEDICARE, SELFPAY | END 2025-02-26 23:59 | disposition home or self-care (01) | LOC: TPT 05:00 | PROVIDERS: PCP Family Medicine; Visit Provider Physician Assistant | DX: M17.12 Unilateral primary osteoarthritis, left knee (principal) | CPT/HCPCS: 97110; 97161 ==

== ENCOUNTER → 2025-01-31 10:32 | Outpatient (BNVA) | payer MEDICARE, SELFPAY | PROVIDERS: PCP Family Medicine; Visit Provider Family Medicine | DX: E11.8 Type 2 diabetes mellitus with unspecified complications (principal) | CPT/HCPCS: 83036 ==

== ENCOUNTER → 2025-02-05 10:30 | Outpatient (BNVA) | payer MEDICARE, SELFPAY | PROVIDERS: PCP Family Medicine; Visit Provider Thoracic Surgery (Cardiothoracic Vascular Surgery) | DX: Z09 Encounter for follow-up examination after completed treatment for conditions other than malignant neoplasm (principal); Z87.2 Personal history of diseases of the skin and subcutaneous tissue | CPT/HCPCS: 99212 ==

== ENCOUNTER → 2025-02-07 11:12 | Outpatient (BNVA) | payer MEDICARE, SELFPAY | PROVIDERS: PCP Family Medicine; Visit Provider Physician Assistant | DX: M17.12 Unilateral primary osteoarthritis, left knee (principal) | CPT/HCPCS: 20610; 99213; J3301; J9999 ==

== ENCOUNTER 2025-02-27 05:00 | Outpatient (RCR) | payer MEDICARE, SELFPAY | END 2025-03-29 23:59 | disposition home or self-care (01) | LOC: TPT 05:00 | PROVIDERS: PCP Family Medicine; Visit Provider Physician Assistant | DX: M17.12 Unilateral primary osteoarthritis, left knee (principal); M25.562 Pain in left knee | CPT/HCPCS: 97110 ==

== ENCOUNTER → 2025-04-04 10:25 | Outpatient (BNVA) | payer MEDICARE, SELFPAY | PROVIDERS: PCP Family Medicine; Visit Provider Physician Assistant | DX: M67.431 Ganglion, right wrist (principal); M25.531 Pain in right wrist | CPT/HCPCS: 73110; 99214 ==

== ENCOUNTER → 2025-04-29 14:30 | Outpatient (BNVA) | payer MEDICARE, SELFPAY | PROVIDERS: PCP Family Medicine; Visit Provider Nurse Practitioner Family | DX: S31.109A Unspecified open wound of abdominal wall, unspecified quadrant without penetration into peritoneal cavity, initial encounter (principal); X58.XXXA Exposure to other specified factors, initial encounter | CPT/HCPCS: 87070; 87075; 87077; 87184; 87205 ==

== ENCOUNTER → 2025-05-09 09:02 | Outpatient (BNVA) | payer MEDICARE, SELFPAY | PROVIDERS: PCP Family Medicine; Visit Provider Physician Assistant | DX: M17.12 Unilateral primary osteoarthritis, left knee (principal) | CPT/HCPCS: 20610; 99213; J7318 ==

== ENCOUNTER → 2025-05-12 08:09 | Outpatient (BNVA) | payer MEDICARE, SELFPAY | PROVIDERS: PCP Family Medicine; Visit Provider Thoracic Surgery (Cardiothoracic Vascular Surgery) | DX: I96 Gangrene, not elsewhere classified (principal); L98.491 Non-pressure chronic ulcer of skin of other sites limited to breakdown of skin | CPT/HCPCS: 97597; 99203 ==

== ENCOUNTER → 2025-05-19 08:48 | Outpatient (BNVA) | payer MEDICARE, SELFPAY | PROVIDERS: PCP Family Medicine; Visit Provider Thoracic Surgery (Cardiothoracic Vascular Surgery) | DX: Z09 Encounter for follow-up examination after completed treatment for conditions other than malignant neoplasm (principal); Z87.2 Personal history of diseases of the skin and subcutaneous tissue | CPT/HCPCS: 99212 ==

== ENCOUNTER → 2025-06-16 09:19 | Outpatient (BNVA) | payer MEDICARE, SELFPAY | PROVIDERS: PCP Family Medicine; Visit Provider Family Medicine | DX: I10 Essential (primary) hypertension (principal); E11.8 Type 2 diabetes mellitus with unspecified complications; E78.2 Mixed hyperlipidemia; N32.81 Overactive bladder; Z79.890 Hormone replacement therapy | CPT/HCPCS: 80053; 83036 ==

== ENCOUNTER 2025-06-20 08:37 | Day surgery (SDC) | payer MEDICARE, SELFPAY ==
[2025-06-20] VITALS (11 sets, daily range): BP systolic 112–143; BP diastolic 67–95; PULSE 77–120; RESP 10–18; TEMP 36.2–36.3; O2SAT 92–96
--- NOTE | 2025-06-20 09:06 | ANES.PREANE2 ---
Pre-Anesthetic Assessment Height/Weight: Height 1.6 m Weight 81.647 kg Temp Pulse Resp BP Pulse Ox O2 Del Method 97.4 F L 96 18 143/95 94 Room Air 06/20/25 08:52 06/20/25 08:52 06/20/25 08:52 06/20/25 08:52 06/20/25 08:52 06/20/25 08:52 Operation Date: 06/20/25 10:20 Proposed Procedures p RIGHT Volar Wrist Excision Of Ganglion Cyst(Right) - Emmanuel Simpson DO Familial anesthetic complications: Woke up during IV propofol foot surgery with discomfort, patient aware she will be getting IV anesthesia, patient in agreement Was Beta Adriana taken within 24 hours: N/A Was Clonidine taken within 24 hours: N/A Last intake: Intake Last Liquid Date 06/19/25 Last Liquid Time 21:00 Last Solid Date 06/19/25 Last Solid Time 21:00 Social No alcohol and No tobacco Exam alert, oriented x 3, clear to auscultation bilaterally and regular rate & rhythm Airway Mallampati: Class II Dentition: other (missing) Pulmonary Asthma CV/HEM Hypertension Hepatic hx hep c GI Gastroesophageal Reflux Disease Metabolic Diabetes Mellitus and Hyperlipidemia Neuropsych Anxiety and Cerebrovascular Accident Anesthetic Plan ASA status: 3 Anesthesia: MAC Risk of > 500 ml blood loss (7ml/kg in children): No Medications/Allergies Home Medications ?Medication ?Instructions ?Recorded ?Confirmed ?Last Taken ?Type acetaminophen 325 mg tablet 325 mg PO QID PRN Pain 09/23/24 06/19/25 11/26/24 23:55 History (Tylenol) Metamucil Fiber Gummies 2 gummy PO BID 09/30/24 06/19/25 06/19/25 History biotin 5 mg tablet 5 mg PO DAILY 09/30/24 06/19/25 06/19/25 History latanoprost 0.005 % eye drops 1 drp ophthalmic (eye) DAILY 09/30/24 06/19/25 06/19/25 History multivitamin 1 tab PO DAILY 09/30/24 06/19/25 06/12/25 History timolol maleate 0.5 % eye drops 1 drp ophthalmic (eye) BID 09/30/24 06/19/25 06/19/25 History polyethylene glycol 3350 17 gram 17 g PO DAILY 30 days #510 ea 10/08/24 06/19/25 11/26/24 Rx oral powder packet sacral dressing #20 ea 11/25/24 06/16/25 Unknown Rx albuterol sulfate 90 mcg/actuation 2 puff inhalation Q6H PRN 01/31/25 06/19/25 06/18/25 Rx aerosol inhaler Shortness Of Breath #8.5 grams trospium 20 mg tablet 20 mg PO BID #180 tabs 03/12/25 06/19/25 06/19/25 Rx atorvastatin 40 mg tablet 20 mg (1/2 x 40 mg) PO BEDTIME 30 04/11/25 06/19/25 06/19/25 Rx days #15 tabs omega 1-wvx-zdy-fish oil 1,000 mg 1 cap PO BID #60 caps 04/11/25 06/19/25 05/29/25 Rx (120 mg-180 mg) capsule (Fish Oil) mupirocin 2 % topical ointment 1 applic topical BID #22 grams 04/29/25 06/19/25 Unknown Rx (Centany) docusate sodium 100 mg capsule 100 mg PO BID 30 days #60 caps 05/12/25 06/19/25 06/19/25 Rx paliperidone 6 mg tablet,extended 12 mg (2 x 6 mg) PO QAM #60 tabs 05/22/25 06/19/25 06/19/25 Rx release 24 hr (Invega) trazodone 100 mg tablet 200 mg (2 x 100 mg) PO .HS #60 tabs 06/12/25 06/19/25 06/19/25 Rx estradiol 1 mg tablet 1 mg PO DAILY 06/19/25 06/19/25 06/19/25 History famotidine 40 mg tablet 40 mg PO DAILY 06/19/25 06/19/25 06/19/25 History fexofenadine 180 mg tablet 180 mg PO DAILY 06/19/25 06/19/25 06/19/25 History guaifenesin 600 mg tablet, 600 mg PO DAILY 06/19/25 06/19/25 06/19/25 History extended release 12 hr hydrochlorothiazide 12.5 mg tablet 12.5 mg PO DAILY 06/19/25 06/19/25 06/19/25 History losartan 50 mg tablet 50 mg PO DAILY 06/19/25 06/19/25 06/19/25 History meloxicam 15 mg tablet 15 mg PO DAILY 06/19/25 06/19/25 06/12/25 History metformin 500 mg tablet 500 mg PO DAILY 06/19/25 06/19/25 06/12/25 History pantoprazole 40 mg tablet,delayed 40 mg PO BID 06/19/25 06/19/25 06/19/25 History release sennosides 8.6 mg-docusate sodium 1 tab PO DAILY 06/19/25 06/19/25 Unknown History 50 mg tablet (Stool Softener-Stimulant Laxative) Allergies Allergy/AdvReac Type Severity Reaction Status Date / Time ciprofloxacin (From Cipro) Allergy Severe ALGY-Anaphy Verified 06/19/25 14:32 laxis divalproex sodium (From Allergy Unknown Unresponsiv Verified 06/19/25 14:32 Depakote) e donepezil (From Aricept) Allergy ADR-Nausea Verified 06/19/25 14:32 fluoxetine (From Prozac) Allergy ADR-Nausea Verified 06/19/25 14:32 fluticasone (From Advair Allergy ADR-Gastrointestinal Verified 06/19/25 14:32 Diskus) Upset lamotrigine (From Lamictal) Allergy ADR-Nausea Verified 06/19/25 14:32 phentermine Allergy ADR-Agitate Verified 06/19/25 14:32 d quetiapine (From Seroquel) Allergy ADR-Gastrointestinal Verified 06/19/25 14:32 Upset salmeterol (From Advair Allergy ADR-Gastrointestinal Verified 06/19/25 14:32 Diskus) Upset tamsulosin Allergy ALGY-Rash Verified 06/19/25 14:32 thiethylperazine (From Allergy ADR-Shakine Verified 06/19/25 14:32 Torecan) ss varenicline (From Chantix) Allergy ADR-Gastrointestinal Verified 06/19/25 14:32 Upset zonisamide (From Zonegran) Allergy ADV-Weaknes Verified 06/19/25 14:32 s [facility] Anesthesia Medical History Tinnitus of both ears Wheezing on auscultation Cannabis use disorder Nicotine dependence, cigarettes, uncomplicated alf current use of antipsychotic medication Psychiatric care Hx of colonic polyps she says she is due for colonoscopy--last one [place] 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, due to meth Chronic back pain greater than 3 months duration Hormone replacement therapy (HRT) Nicotine dependence, cigarettes, in remission Hyperlipidemia GERD without esophagitis Anxiety Hx of hepatitis C cured; reports she has had hep a an b vax Overactive bladder Diabetic retinopathy associated with controlled type 2 diabetes mellitus Eczema Controlled type 2 diabetes mellitus, without long-term current use of insulin Glaucoma (~2017) History of CVA (cerebrovascular accident) in her 40s; no residual deficits Bipolar 1 disorder Hypertension Surgical History History of colonoscopy History of esophagogastroduodenoscopy (EGD) History of glaucoma tube shunt procedure Hx of cataract removal with insertion of prosthetic lens OU History of reconstructive repair of rectocele and pelvic floor reconstruction History of back surgery age 59; lumbar fusion History of foot surgery Removal of tumor from right foot. In her 30s. Hx of cholecystectomy Laparoscopic. In her 30s. Hx of appendectomy (~1987) Age 28. Hx of sinus surgery Sinus surgery with septoplasty. In her 30s Hx of tubal ligation (~1985) Age 26. History of tonsillectomy and adenoidectomy (~1978) Age 19 Hx of hysterectomy (~1990) ANABELLE/BSO due to endometriosis. Age 31. History of total right knee replacement (~2015) History of bladder repair surgery (~2014) Prolapse surgery by Dr. Melendez in [place]. Family History Father Diabetes Hypertension Mother Myocardial infarction Hypertension CAD (coronary artery disease) Renal cancer Grandmother Stroke maternal Social History Smoking and tobacco/nicotine status: current every day tobacco/nicotine user Quit status (tobacco/nicotine): has tried quititng Second hand smoke exposure: No Alcohol intake: never Substance/Drug Use: former Date of last use: 1998 -marijuana and methamphetamine Former substance use details: did IV drugs--quit age 40; hx of hep c--cured Lives independently: Yes Household members: none Marital status: / Number of children: 3 Highest education level completed: Some College, No Degree Current occupational status: disabled Current occupation: RN; worked as labor and delivery nurse Current gender identity: Female Special irineo needs: No Agree to transfusion: Yes
--- NOTE | 2025-06-20 09:14 | W.PM.OPSFHP ---
Same Day Surgery H&P Indication for Procedure/HPI DATE OF PROCEDURE: June 20, 2025 CHIEF COMPLAINT/INDICATIONFOR SURGICAL PROCEDURE: Right volar wrist ganglion cyst PREOP DIAGNOSIS: Right volar wrist ganglion cyst PLANNED PROCEDURE: Operation Date: 06/20/25 10:20 Proposed Procedures p RIGHT Volar Wrist Excision Of Ganglion Cyst(Right) - Emmanuel Simpson, DO Medications/Allergies* Home Medications ?Medication ?Instructions ?Recorded ?Confirmed ?Type acetaminophen 325 mg tablet 325 mg PO QID PRN Pain 09/23/24 06/19/25 History (Tylenol) Metamucil Fiber Gummies 2 gummy PO BID 09/30/24 06/19/25 History biotin 5 mg tablet 5 mg PO DAILY 09/30/24 06/19/25 History latanoprost 0.005 % eye drops 1 drp ophthalmic (eye) DAILY 09/30/24 06/19/25 History multivitamin 1 tab PO DAILY 09/30/24 06/19/25 History timolol maleate 0.5 % eye drops 1 drp ophthalmic (eye) BID 09/30/24 06/19/25 History estradiol 1 mg tablet 1 mg PO DAILY 06/19/25 06/19/25 History famotidine 40 mg tablet 40 mg PO DAILY 06/19/25 06/19/25 History fexofenadine 180 mg tablet 180 mg PO DAILY 06/19/25 06/19/25 History guaifenesin 600 mg tablet, 600 mg PO DAILY 06/19/25 06/19/25 History extended release 12 hr hydrochlorothiazide 12.5 mg tablet 12.5 mg PO DAILY 06/19/25 06/19/25 History losartan 50 mg tablet 50 mg PO DAILY 06/19/25 06/19/25 History meloxicam 15 mg tablet 15 mg PO DAILY 06/19/25 06/19/25 History metformin 500 mg tablet 500 mg PO DAILY 06/19/25 06/19/25 History pantoprazole 40 mg tablet,delayed 40 mg PO BID 06/19/25 06/19/25 History release sennosides 8.6 mg-docusate sodium 1 tab PO DAILY 06/19/25 06/19/25 History 50 mg tablet (Stool Softener-Stimulant Laxative) Allergies/Adverse Reactions Allergy/AdvReac Type Severity Reaction Status Date / Time [facility] Allergy Severe ALGY-Anaphy Verified 06/19/25 14:32 laxis divalproex sodium (From Allergy Unknown Unresponsiv Verified 06/19/25 14:32 Depakote) e donepezil (From Aricept) Allergy ADR-Nausea Verified 06/19/25 14:32 fluoxetine (From Prozac) Allergy ADR-Nausea Verified 06/19/25 14:32 fluticasone (From Advair Allergy ADR-Gastrointestinal Verified 06/19/25 14:32 Diskus) Upset lamotrigine (From Lamictal) Allergy ADR-Nausea Verified 06/19/25 14:32 phentermine Allergy ADR-Agitate Verified 06/19/25 14:32 d quetiapine (From Seroquel) Allergy ADR-Gastrointestinal Verified 06/19/25 14:32 Upset salmeterol (From Advair Allergy ADR-Gastrointestinal Verified 06/19/25 14:32 Diskus) Upset tamsulosin Allergy ALGY-Rash Verified 06/19/25 14:32 thiethylperazine (From Allergy ADR-Shakine Verified 06/19/25 14:32 Torecan) ss varenicline (From Chantix) Allergy ADR-Gastrointestinal Verified 06/19/25 14:32 Upset zonisamide (From Zonegran) Allergy ADV-Weaknes Verified 06/19/25 14:32 s Current Medications: Generic Name Dose Route Start Last Admin Trade Name Freq PRN Reason Stop Dose Admin Sodium Chloride 1,000 mls @ 30 mls/hr 06/20/25 08:45 06/20/25 09:07 Sodium Chloride 0.9% IV 06/21/25 08:44 30 mls/hr .Q24H MEE Administration Pertinent History/Comorbid Conditions* Medical History (Updated 06/16/25 @ 09:17 by Ellie Maya MD) Tinnitus of both ears Wheezing on auscultation Cannabis use disorder Nicotine dependence, cigarettes, uncomplicated intermediate frame tender current use of antipsychotic medication Psychiatric care Hx of colonic polyps she says she is due for colonoscopy--last one [place] 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, due to meth Chronic back pain greater than 3 months duration Hormone replacement therapy (HRT) Nicotine dependence, cigarettes, in remission Hyperlipidemia GERD without esophagitis Anxiety Hx of hepatitis C cured; reports she has had hep a an b vax Overactive bladder Diabetic retinopathy associated with controlled type 2 diabetes mellitus Eczema Controlled type 2 diabetes mellitus, without long-term current use of insulin Glaucoma (~2017) History of CVA (cerebrovascular accident) in her 40s; no residual deficits Bipolar 1 disorder Hypertension Surgical History (Updated 12/09/24 @ 10:15 by Loki Martini DO) History of colonoscopy History of esophagogastroduodenoscopy (EGD) History of glaucoma tube shunt procedure Hx of cataract removal with insertion of prosthetic lens OU History of reconstructive repair of rectocele and pelvic floor reconstruction History of back surgery age 59; lumbar fusion History of foot surgery Removal of tumor from right foot. In her 30s. Hx of cholecystectomy Laparoscopic. In her 30s. Hx of appendectomy (~1987) Age 28. Hx of sinus surgery Sinus surgery with septoplasty. In her 30s Hx of tubal ligation (~1985) Age 26. History of tonsillectomy and adenoidectomy (~1978) Age 19 Hx of hysterectomy (~1990) ANABELLE/BSO due to endometriosis. Age 31. History of total right knee replacement (~2015) History of bladder repair surgery (~2014) Prolapse surgery by Dr. Melendez in [place]. Family History (Updated 07/23/24 @ 09:25 by Ellie Maya MD) Diabetes Father CAD (coronary artery disease) Mother Myocardial infarction Mother Renal cancer Mother Hypertension Father Mother Stroke Grandmother maternal Social History Smoking and tobacco/nicotine status: current every day tobacco/nicotine user Quit status (tobacco/nicotine): has tried quititng Second hand smoke exposure: No Alcohol intake: never Substance/Drug Use: former Date of last use: 1998 -marijuana and methamphetamine Former substance use details: did IV drugs--quit age 40; hx of hep c--cured Lives independently: Yes Household members: none Marital status: / Number of children: 3 Highest education level completed: Some College, No Degree Current occupational status: disabled Current occupation: RN; worked as labor and delivery nurse Current gender identity: Female Special irineo needs: No Agree to transfusion: Yes Pertinent Exam Findings alert, oriented x 3, operative site marked and procedure specific exam findings Please refer to detailed orthopedic examination on 04/04/2025 listed below: Right Hand exam-negative Tinel's. Positive [facility] grind test and some tenderness at base of thumb. No thenar atrophy and thenar muscle weakness. Full range of motion in fingers and wrist and fingers are warm and well-perfused with normal cap refill under 2 seconds. Radial pulse 2+, palpable soft tender nodule on volar aspect of wrist. No signs of infection or abscess. Recommendations Risks and benefits of procedure reviewed and Patient/family agree to proceed Surgery/Procedure today Other Plans: Plan to proceed to the OR today for right volar wrist ganglion cyst excision. Patient understands the ins and outs procedure the risk benefits complication alternatives of surgery and through shared decision making patient like to proceed with surgical invention. All questions answered this time. Will proceed to the OR today. Coding Level of Care Code Acute Code for Chg Fwd
[2025-06-20] MEDS: ceFAZolin 2,000 MG in sodium chloride 0.9% (plus) 50 ML 100 MG IV (09:27)
[2025-06-20] MEDS: ROPivacaine 0.5% SDV 30 mL 150 MG INJECTION (09:45)
--- NOTE | 2025-06-20 09:58 | P.BOP_ITS ---
Date of Procedure: 06/20/2025 Surgeon: Emmanuel Simpson DO General Service Officer(s): None Procedure(s) performed: Right volar wrist ganglion cyst excision (0.25 cm x 0.25 cm x 0.5 cm) Findings of the procedure(s): Procedure went as planned without issues or complications taken recovery in stable condition with a volar wrist splint applied Estimated blood loss: 2 mL Specimen(s) removed: Right volar wrist ganglion cyst excised and sent for specimen Post-operative diagnosis: Right volar wrist ganglion cyst
--- NOTE | 2025-06-20 09:58 | PM.OP ---
Operative Report Date of procedure: June 20, 2025 Surgeon: Emmanuel Simpson DO Procedure: Preoperative diagnosis: Right volar wrist?ganglion?cyst Postoperative diagnosis: Same Procedure Right volar wrist?ganglion?cyst excision (0.25 cm x 0.25 cm x 0.5 cm) Specimens removed/disposition: Right volar wrist?ganglion?cyst excised and sent for pathology Surgeon: Emmanuel Simpson DO Estimated blood loss: 2mL Tourniquet time 7 minutes IV fluids: 400 cc Complications: None Findings: See operative report narrative Condition: stable Disposition: same day Brief History: Patient's been worked up in the outpatient setting and findings consistent with preoperative diagnosis.? Patient has a Right volar wrist?ganglion?cyst.? Patient has attempted conservative treatment and this has become significantly painful.? ?We talked about treatment options as far as nonoperative and operative intervention.? At this point time patient like a more permanent solution in the lowest chance of recurrence and as result through shared decision making we agreed to proceed with a Right volar wrist?ganglion?cyst excision.? Patient understands risk benefits complication alternatives surgical nonsurgical treatment options.? Understanding risk of surgery patient agrees to proceed.? All questions answered.? Consent obtained in the preoperative holding area. Procedure: Patient seen evaluate in the preoperative holding area.? Consent was signed and reviewed with patient.? All questions were answered at that time.? Correct extremity was then marked.? Once seen evaluated by anesthesia patient was then brought back to the operative suite.? Patient was then placed in supine position all bony prominences well-padded patient was properly secured to the bed.? An armboard was then applied for the Right upper extremity.? A nonsterile tourniquet was applied to the Right upper extremity arm.? Patient then underwent anesthesia per the anesthesia department.? Once appropriately anesthetized the Right upper extremity was then prepped and draped in standard orthopedic fashion.? Final timeout performed.? Patient received appropriate preoperative antibiotics. Under sterile aseptic technique I began with local anesthetic for my preplanned surgical site.? Then I utilized an Esmarch tourniquet to exsanguinate the Right upper extremity to 250 mmHg Patient had a small soft mobile?ganglion?cyst over the volar wrist. An incision was then centered longitudinally directly over the?cyst over the volar aspect of the Right wrist, this was made in standard Richard fashion. sharp scalpel incision was made through skin.? I then switched to dissection scissors and spread longitudinally to identify cutaneous nerve branches as well as identifying protecting radial artery. These were protected throughout the case.? I immediately encountered the?ganglion?cyst. I then dissected circumferentially all the way to the base which was connected to the volar capsule.? This was then transected at the base with bipolar electrocautery.?I utilized bipolar electrocautery to to seal off the volar capsule and prevent any further?cyst recurrence.??Cyst was then sent for pathology cyst size was measured 0.25 cm x 0.25 cm x 0.5 cm.? I then thoroughly irrigated the wound bed tourniquet was deflated.? Hemostasis was satisfactory with bipolar electrocautery.? I then closed the incision with stitch for skin.? Xeroform over the incisions 4 x 4's ABD soft roll and a volar splint was applied.? Patient was then awakened from anesthesia and taken back in stable condition. Disposition: Patient taken back in stable condition recovering well.? Patient will receive appropriate discharge instructions as well as pain medication postoperatively.? Patient placed in a volar splint.? We will follow-up with in the orthopedic office in 2 weeks.? Patient understands of any questions or concerns and contact the office.
--- NOTE | 2025-06-20 11:25 | ANE.PACU2 ---
Inpatient post-anesthesia follow up: Airway intact: Yes Vital signs: Temperature 97.2 F Pulse Rate 80 Respiratory Rate 16 Blood Pressure 126/77 Pulse Oximetry 92 Oxygen Delivery Me thod Room Air Oxygen Flow Rate Fraction of Inspir ed Oxygen Hydration adequate: Yes Nausea and vomiting: No Pain level: 1 Mental status: Baseline
== END 2025-06-20 11:26 | disposition home or self-care (01) ==
PROVIDERS: PCP Family Medicine; Visit Provider Student in an Organized Health Care Education/Training Program
PROC: (CPT 25111; principal; 2025-06-20 10:10)
DX: M67.431 Ganglion, right wrist (principal); J45.909 Unspecified asthma, uncomplicated; I10 Essential (primary) hypertension; Z86.19 Personal history of other infectious and parasitic diseases; K21.9 Gastro-esophageal reflux disease without esophagitis; E11.9 Type 2 diabetes mellitus without complications; E78.5 Hyperlipidemia, unspecified; F41.9 Anxiety disorder, unspecified; Z86.73 Personal history of transient ischemic attack (TIA), and cerebral infarction without residual deficits; Z79.84 Long term (current) use of oral hypoglycemic drugs; F31.9 Bipolar disorder, unspecified; F17.210 Nicotine dependence, cigarettes, uncomplicated
CPT/HCPCS: 25111; 36416; 82962; 88304; J0690; J1885; J2250; J2704; J2795; J3010; J7030; J9999

== ENCOUNTER → 2025-07-04 08:47 | Outpatient (BNVA) | payer MEDICARE, SELFPAY | PROVIDERS: PCP Family Medicine; Visit Provider Physician Assistant | DX: Z98.890 Other specified postprocedural states (principal) | CPT/HCPCS: 99024 ==

== ENCOUNTER → 2025-08-12 11:04 | Outpatient (BNVA) | payer MEDICARE, SELFPAY | PROVIDERS: PCP Family Medicine; Visit Provider Physician Assistant | DX: M17.12 Unilateral primary osteoarthritis, left knee (principal) | CPT/HCPCS: 20610; 73560; 73565; 99213; J3301; J9999 ==

== ENCOUNTER 2025-08-20 10:23 | Outpatient (CLI) | payer MEDICARE, SELFPAY ==
--- NOTE | 2025-08-20 10:31 | MM_ITS ---
WS: [id number] BILATERAL SCREENING DIGITAL TOMOSYNTHESIS MAMMOGRAM WITH CAD HISTORY: ANNUAL SCREEN COMPARISON: 08/16/2024, 08/14/2023 Bilateral CC and MLO views with tomosynthesis and synthetic mammography submitted. Computer aided detection analyzed. Breast composition: There are scattered areas of fibroglandular density. No suspicious masses, microcalcifications or architectural distortion. Benign calcifications in each breast. MM/MM scr BI tomosynthesis [id number] IMPRESSION: BI-RADS: 2 - Benign. FOLLOW UP: 1 Year Follow-up
== END 2025-08-20 10:24 | disposition home or self-care (01) ==
LOC: RAD 10:24
PROVIDERS: PCP Family Medicine; Visit Provider Family Medicine
DX: Z12.31 Encounter for screening mammogram for malignant neoplasm of breast (principal); R92.323 Mammographic fibroglandular density, bilateral breasts; R92.1 Mammographic calcification found on diagnostic imaging of breast
CPT/HCPCS: 77063; 77067

== ENCOUNTER 2025-09-19 10:34 | Outpatient (CLI) | payer MEDICARE, SELFPAY ==
--- NOTE | 2025-09-19 10:41 | MR_ITS ---
WS: [id number] MRI BRAIN WITH HIGH-RESOLUTION IMAGING THROUGH THE INTERNAL AUDITORY CANALS WITHOUT AND WITH CONTRAST HISTORY: TINNITUS L EAR/SENSORINEURAL HEARING LOSS,BILATERAL COMPARISON: 08/30/2018 TECHNIQUE: Multiplanar, multisequence imaging is performed through the brain. Additional 3 mm imaging performed in multiple planes through the internal auditory canal. Postcontrast imaging with 18 ml's of MultiHance. No acute intracranial hemorrhage, midline shift, edema or mass effect. No diffusion abnormality. Very mild bifrontal lobe atrophy. Mild progression of small vessel changes in the periventricular white matter since 2018. No infarct. Ventricles and extra-axial spaces are normal. No inferior displacement of cerebellar tonsils. Clivus and pituitary gland are normal. Internal and external auditory canals: Unremarkable. Cranial nerves VII and VIII complexes: Unremarkable. No enhancement or mass. Cerebellopontine angles: Normal. Paranasal sinuses: Normal. Mastoid air cells: Normal. Calvarium and scalp: Normal. Visualized [place] and dural venous sinuses demonstrate no abnormality. MR/MR iac's wo/w con* [id number] IMPRESSION: 1. No mass or signal abnormality at the cerebellopontine angles or internal au ditory canals. 2. No enhancing masses. 3. No acute or remote infarct. 4. Mild bifrontal lobe atrophy. 5. Mild progression of small vessel changes in the periventricular white matte r.
== END 2025-09-19 10:35 | disposition home or self-care (01) ==
LOC: RAD 10:35
PROVIDERS: PCP Family Medicine; Visit Provider Otolaryngology
DX: H93.12 Tinnitus, left ear (principal); H90.3 Sensorineural hearing loss, bilateral
CPT/HCPCS: 70553